=== PATIENT | male | born 1970 | race Caucasian/White ===

== ENCOUNTER 2017-10-18 11:30 | Inpatient (IN) | payer BC ==
--- NOTE | 2017-10-18 11:41 | EDPHY ---
H & P Stated Complaint: Feels "relaxed", heart racing,SOB, since arriving at altitude yesterday Time Seen by Provider: 10/18/17 11:39 HPI/ROS: CHIEF COMPLAINT: Dyspnea HISTORY OF PRESENT ILLNESS: The patient has a history of congestive heart failure and hypertension typically living at sea [place] who presents to the ED with dyspnea in the setting of [place] [address] [place]. The patient is visiting [place] from [place]. The patient reports he has been compliant with his regular medications which include Coreg, Lasix, minoxidil and clonidine. The patient denies significant weight gain. He does report orthopnea, dyspnea on exertion and PND. REVIEW OF SYSTEMS: A comprehensive 10 point review of systems is otherwise negative aside from elements mentioned in the history of present illness. Source: Patient - Personal History Current Tetanus Diphtheria and Acellular Pertussis (TDAP): Yes - Medical/Surgical History Hx Cardiac Disease: Yes Other PMH: morbid obesity. CHF - Social History Smoking Status: Never smoked - Physical Exam Exam: General Appearance: Obese male, no acute distress Eyes: Pupils equal and round no pallor or injection ENT, Mouth: Mucous membranes moist Respiratory: Distant breath sounds secondary to patient's body habitus Cardiovascular: Regular rate and rhythm Gastrointestinal: Abdomen is soft and nontender, no masses, bowel sounds normal Neurological: 5/5 strength all 4 extremities Skin: Warm and dry, no rashes Musculoskeletal: Neck is supple nontender Extremities: symmetrical, full range of motion Constitutional: Initial Vital Signs Temperature (C) 38.1 C 10/18/17 11:31 Heart Rate 85 10/18/17 11:31 Respiratory Rate 18 10/18/17 11:31 Blood Pressure 112/57 L 10/18/17 11:31 O2 Sat (%) 90 L 10/18/17 11:31 O2 Delivery Mode Room Air Allergies/Adverse Reactions: No Known Allergies Allergy (Unverified 10/18/17 11:34) Home Medications: Medication Instructions Recorded Carvedilol [Coreg] 12.5 mg PO BID 10/18/17 Furosemide [Lasix] 40 mg PO BID PRN 10/18/17 Minoxidil [Minoxidil 2.5 mg (*)] 10 mg PO DAILY 10/18/17 clonIDINE [Catapres-Tts (RX)] 0.1 mg TD FR@09 10/18/17 Medical Decision Making - Diagnostics EKG Interpretation: EKG: Complete interpretation has been separately recorded in the [facility] archive. Summary impression: Sinus rhythm, rate 82, bifascicular block. No old EKG to compare to Imaging Results: Imaging Impressions Chest X-Ray 10/18/17 11:57 Impression: Findings suggesting congestive heart failure with cardiomegaly, pulmonary vascular congestion, and mild pulmonary edema. ED Course/Re-evaluation: The patient presents the ED for evaluation of dyspnea precipitated by a acute visit to high altitude yesterday. The patient has a history of heart failure. The patient denies asymmetric calf pain or swelling. The patient denies any history of exertional chest pain. He does endorse symptoms of fatigue and malaise. Workup in the emergency department does demonstrate a low-grade fever of 38.3 degrees. Blood cultures x2 have been obtained. The patient's EKG demonstrates no evidence of acute ischemic changes. He does have a bifascicular block of undetermined etiology. The patient was noted to have an elevated pro-bnp and troponin of 1.35. The patient will require admission to the hospital in the setting of his abnormal laboratory studies, dyspnea, heart failure and fever. Consultation was made with the hospitalist service at 1:00 p.m.. The patient will be admitted by Dr. López. The patient has no obvious source of infection identified as of 1:30 p.m.. Urinalysis is still pending. The patient will be admitted to the progressive care unit for further care. Differential Diagnosis: Differential diagnosis considered includes congestive heart failure, myocardial infarction, pneumonia, urinary tract infection, bacteremia, dehydration, metabolic abnormality Critical Care Time: Critical care time exclusive of procedures and exclusive of the PA's time was 45 minutes, performed by myself, Edmundo Bailey MD. The patient presents to the ED with difficulty breathing, leukocytosis, mild hypoxemia and elevated troponin with renal insufficiency. The patient will require admission to a monitored bed with consultation by Medicine and Cardiology. - Data Points Laboratory Results: Laboratory Results 10/18/17 11:50 10/18/17 11:50 10/18/17 10/18/17 10/18/17 12:25 11:50 11:50 WBC RBC Hgb Hct MCV MCH MCHC RDW Plt Count MPV Neut % (Auto) Lymph % (Auto) [place] % (Auto) Eos % (Auto) Baso % (Auto) Nucleat RBC Rel Count Absolute Neuts (auto) Absolute Lymphs (auto) Absolute Monos (auto) Absolute Eos (auto) Absolute Basos (auto) Absolute Nucleated RBC Immature Gran % Immature Gran # RBC/WBC/PLT Morphology Platelet Estimate PT INR VBG Lactic Acid 2.6 mmol/L H mmol/L (0.7-2.1) Sodium 138 mEq/L mEq/L (135-145) Potassium 3.8 mEq/L mEq/L (3.3-5.0) Chloride 99 mEq/L mEq/L (97-110) Carbon Dioxide 23 mEq/l mEq/l (22-31) Anion Gap 16 mEq/L mEq/L (8-16) BUN 23 mg/dL mg/dL (7-23) Creatinine 1.7 mg/dL H mg/dL (0.7-1.3) Estimated GFR 43 Glucose 119 mg/dL H mg/dL (70-100) Calcium 8.5 mg/dL mg/dL (8.5-10.4) Iron 31.0 mcg/dL L mcg/dL (49.0-199.0) TIBC Pending Iron Saturation Pending Ferritin Pending Total Bilirubin 2.5 mg/dL H mg/dL (0.1-1.4) Conjugated Bilirubin 1.3 mg/dL H mg/dL (0.0-0.5) Unconjugated Bilirubin 1.2 mg/dL H mg/dL (0.0-1.1) AST 44 IU/L IU/L (17-59) ALT 28 IU/L IU/L (21-72) Alkaline Phosphatase 84 IU/L IU/L (38-126) Troponin I Pending 1.350 ng/mL H ng/mL (0.000-0.034) NT-Pro-B Natriuret Pep 11734 pg/mL H pg/mL (0-125) Total Protein 7.1 g/dL g/dL (6.3-8.2) Albumin 3.8 g/dL g/dL (3.5-5.0) 10/18/17 10/18/17 11:50 11:50 WBC 21.63 10^3/uL H 10^3/uL (3.80-9.50) RBC 4.87 10^6/uL 10^6/uL (4.40-6.38) Hgb 12.6 g/dL L g/dL (13.7-17.5) Hct 37.5 % L % (40.0-51.0) MCV 77.0 fL L fL (81.5-99.8) MCH 25.9 pg L pg (27.9-34.1) MCHC 33.6 g/dL g/dL (32.4-36.7) RDW 17.2 % H % (11.5-15.2) Plt Count 187 10^3/uL 10^3/uL (150-400) MPV 10.5 fL fL (8.7-11.7) Neut % (Auto) 93.2 % H % (39.3-74.2) Lymph % (Auto) 3.3 % L % (15.0-45.0) [place] % (Auto) 2.8 % L % (4.5-13.0) Eos % (Auto) 0.0 % L % (0.6-7.6) Baso % (Auto) 0.2 % L % (0.3-1.7) Nucleat RBC Rel Count 0.0 % % (0.0-0.2) Absolute Neuts (auto) 20.16 10^3/uL H 10^3/uL (1.70-6.50) Absolute Lymphs (auto) 0.71 10^3/uL L 10^3/uL (1.00-3.00) Absolute Monos (auto) 0.61 10^3/uL 10^3/uL (0.30-0.80) Absolute Eos (auto) 0.00 10^3/uL L 10^3/uL (0.03-0.40) Absolute Basos (auto) 0.04 10^3/uL 10^3/uL (0.02-0.10) Absolute Nucleated RBC 0.00 10^3/uL 10^3/uL (0-0.01) Immature Gran % 0.5 % % (0.0-1.1) Immature Gran # 0.11 10^3/uL H 10^3/uL (0.00-0.10) RBC/WBC/PLT Morphology TNP Platelet Estimate TNP PT 17.5 SEC H SEC (12.0-15.0) INR 1.42 H (0.83-1.16) VBG Lactic Acid Sodium Potassium Chloride Carbon Dioxide Anion Gap BUN Creatinine Estimated GFR Glucose Calcium Iron TIBC Iron Saturation Ferritin Total Bilirubin Conjugated Bilirubin Unconjugated Bilirubin AST ALT Alkaline Phosphatase Troponin I NT-Pro-B Natriuret Pep Total Protein Albumin Departure - Departure Disposition: [facility] Inpatient Acute Clinical Impression: CHF (congestive heart failure), Elevated troponin Condition: Fair
[2017-10-18 12:02] LABS: PLATELET COUNT 187 10^3/uL (150-400)
[2017-10-18 12:15] LABS: INR 1.42 (0.83-1.16); PROTIME(PATIENT) 17.5 SEC (12.0-15.0)
[2017-10-18] MEDS ORDERED: ONDANSETRON 4 MG/2 ML VIAL IVP PRN (12:49)
[2017-10-18] MEDS ORDERED: ONDANSETRON DISINTEGRATING 4 MG TAB PO PRN (12:49)
--- NOTE | 2017-10-18 13:35 | CPEKG ---
Heart Rate: 82 RR Interval: 732 P-R Interval: 196 QRSD Interval: 120 QT Interval: 448 QTC Interval: 524 P Wells: 54 QRS Wells: -114 T Wave Wells: 84 EKG Severity - ABNORMAL ECG - EKG Impression: SINUS RHYTHM EKG Impression: PROBABLE LEFT ATRIAL ABNORMALITY EKG Impression: INCOMPLETE RBBB AND LAFB Electronically Signed By: Edmundo Bailey 18-Oct-2017 13:37:21
[2017-10-18] MEDS: ACETAMINOPHEN 325 MG TAB PO PRN (14:33)
--- NOTE | 2017-10-18 14:33 | GHP ---
[f rep st] HISTORY AND PHYSICAL DATE OF ADMISSION: 10/18/2017 CHIEF COMPLAINT: Shortness of breath and rigors. HISTORY OF PRESENT ILLNESS: A 47-year-old obese male visiting from [place] who presents to the emergency department with this severe shortness of breath, fatigue and chest pressure. The patient reports flying from [place] the day prior to presentation,picking up a rental car, getting his son, and driving up to [place] at elevation. After arriving at elevation, developing subjective fevers and chills with shakes that he could not control. The patient attempted putting on more clothing without resolution of his symptoms and started developing shortness of breath. Denies any significant cough or sputum production. The shortness of breath and fatigue became so severe that patient opted to drive down from altitude for evaluation. Does endorse tightness of his chest associated with the shortness of breath. Reports pain in his right upper quadrant that was quite severe that he works through. Does report intermittently having pain like this. Cannot clearly associate that right upper quadrant pain with food intake. Denies any nausea. Denies any vomiting. Son reports through the course of the evening that the father was looking diaphoretic and pale. The patient denies any dysuria, hematuria. Denies diarrhea. Denies blood in his stools. Does report markedly increased lower extremity edema since initiating travel. He had his legs wrapped to minimize additional swelling. The patient denies any vision changes, numbness or tingling. Reports a severe fatigue and the desire to simply rest. The patient denies any known history of kidney dysfunction in the past. Reports that he has had normal food and liquid intake. Denies any use of NSAIDs as he develops a rash with them. Did use some CBD oil the evening prior to presentation for uncomfortable legs. PAST MEDICAL HISTORY: 1. Morbid obesity. 2. Hypertension. 3. Hyperlipidemia. 4. Recent diagnosis of congestive heart failure. The patient reports an EF in the 30s. SOCIAL HISTORY: Negative for tobacco. Occasional alcohol. Denies illicit drugs. Reports recent use of CBD oil. FAMILY HISTORY: Very positive for coronary artery disease, multiple male relatives with MIs early in life. ADVANCED DIRECTIVES: Patient is full cor, full tube. His son would be his medical decision maker. REVIEW OF SYSTEMS: A 10-point review of systems is negative with the exception of that reported in the HPI. PHYSICAL EXAMINATION: VITAL SIGNS: Blood pressure 112/57, heart rate 85, respiratory rate 18 saturating 90% on room air. Febrile at 38.1. GENERAL: This is a morbidly obese male lying flat in bed. HEENT: Notable for dry mucous membranes. Eye exam is negative for any icterus. CARDIAC: Heart sounds are very distant but sound regular. PULMONARY: Difficult to auscultate but sound clear. No notable rales or wheezing. GASTROINTESTINAL: Obese. Tenderness to palpation in the right upper quadrant. No rebound or guarding. MUSCULOSKELETAL: 3+ lower extremity edema. SKIN: erythema, cracking and drainage of the lower ext. NEUROLOGIC: Patient is alert and oriented x3. PSYCHIATRIC: He is pleasant and cooperative on interview and examination. DATA: Chest x-ray, which I personally reviewed and interpreted, shows bilateral infiltrates most consistent with vascular congestion. LABORATORY: Troponin 1.35; BNP of 23,300; creatinine 1.7, blood glucose 119, sodium 138, potassium 3.8, lactic acid 2.6. White count 21.6, hematocrit 37.5, MCV is 77, platelet count of 187. ASSESSMENT AND PLAN: This is a 47-year-old male presenting with shortness of breath and fatigue. 1. Acute hypoxic respiratory failure suspect likely related to acute systolic heart failure. The patient has findings on chest x-ray consistent with volume overload and a BNP elevated at 23,000. Will order stat echo and discussed the case with Cardiology as the patient has acute kidney injury as well, which will complicate our use of diuretics. Need better estimation of his cardiac function for plan related to diuresis. I have low suspicion for pulmonary embolism or pneumonia at this time. 2. Sepsis. Patient is presenting with fever, a white count of 21,000. Presumed source would be gastrointestinal based on his right upper quadrant pain. Will order an ultrasound of the gallbladder. Blood cultures have been obtained in the emergency department. Can empirically start an antibiotic to cover gram-negative pathogens until we collect more data. I have ordered a urinalysis as well. 3. Indeterminate troponin. Patient has a concurrent acute kidney injury; however, also has chest pain symptoms and based on his risk factors would be high risk for ischemic disease. Ordering a stat EKG and asking Cardiology to weigh in. Will rapid cycle his troponin for better plan related to risk stratification. Additionally, should get a good view of any segmental wall motion abnormalities on echo. We will give aspirin now and actively follow patient's clinical course. 4. Acute kidney injury. Based on patient's reported history, he has no chronic kidney disease. Certainly a concerning finding in the setting of presumed acute heart failure. We will discuss with Cardiology how to best approach patient's diuresis in the setting of an elevated creatinine. Will send urine studies to work up possible chronic kidney disease not known by the patient. 5. Hyperglycemia. Suspect the patient likely has borderline diabetes, if not flagrant diabetes. Will send hemoglobin A1c. Cover with sliding scale insulin as appropriate. 6. Microcytic anemia. We will send iron studies. 7. Leukocytosis. The patient is presenting with a white count of 21,000, baseline unknown. Most obvious source of infection would be abdominal related to his right upper quadrant pain associated with his rigors. Will check an ultrasound of the abdomen and urinalysis and likely begin empiric treatment for cholecystitis if findings are consistent. 8. Prophylaxis with heparin subcu in the setting of acute kidney injury. DIET: N.p.o. until more data is available for diagnostic plan. DISPOSITION: I expect greater than 2 midnights. The patient is presenting with multi organ dysfunction requiring extensive diagnostic workup and treatment plan. I discussed the case with Dr. Bailey from the emergency department. Will admit the patient to the PCU for care. /[id number]/MODL MTDD
[2017-10-18] MEDS ORDERED: NS 1,000 ML IV ONE ×3 (14:53→16:42)
[2017-10-18] MEDS ORDERED: ALTEPLASE 2 MG VIAL IVP PRN (14:55)
--- NOTE | 2017-10-18 14:59 | ECHO ---
[email or web address] [address] [address] Main: [phone] Fax: [email or web address] Echocardiogram Name: ROSETTE TRIMBLE MR#: [id number] Study Date: 10/18/2017 Study Time: 01:20 PM Date of : 1970 Age: 47 year(s) Height: 190.5 cm (75 in.) Weight: 238.14 kg (525 lb.) BSA: 3.31 m2 Gender: Male Examination: Echo Indication: new heart failure/positive troponin Image Quality: Technically Difficult Contrast: Requested by: Nhung López BP: / Heart Rate: Rhythm: Indication: new heart failure/positive troponin Procedure Staff Broke Worker: Celestina Delgado RDCS Reading Physician: Anibal Roberson MD Requesting Provider: Conclusions: Normal size left ventricle. Mild to moderate LVH. The ejection fraction is estimated to be 55-60 %. LV septal wall appears flattened due to R sided volume overload.. Moderately to severely reduced right ventricular function. The left atrium is moderately to severely dilated. Mild mitral annular calcification. Trivial tricuspid valve regurgitation. The pulmonary artery pressure is normal. Unable to accurately assess accurate chamber sizes due to pt's morbid obesity.. Measurements: Chambers Valvular Assessment AV/MV Valvular Assessment TV/PV Normal Normal Normal Name Value Range Name Value Range Name Value Range Ao Shweta (MM): 3.5 cm (2.2 cm-3.7 AV Vmax: 1.91 m/s (1 m/s-1.7 TR Vmax: 2.17 mm/s ( - ) cm) m/s) TR PGmax: 19 mmHg ( - ) IVSd (2D): 1.7 cm (0.6 cm-1.1 AV maxP mmHg ( - ) syst. PAP: 29 mmHg ( - ) cm) AV meanP mmHg ( - ) LVDd (2D): 5.5 cm (4.2 cm-5.9 MV E Vmax: 0.59 m/s ( - ) cm) MV A Vmax: 0.42 m/s ( - ) LVDs (2D): 3.5 cm (2.1 cm-4 MV E/A: 1.40 ( - ) cm) LVPWd (2D): 1.4 cm (0.6 cm-1 cm) LVEF (2D): 66 (>=54 %) EF Range: 55-60 % Continued Measurements: Chambers Valvular Assessment AV/MV Valvular Assessment TV/PV Patient: ROSETTE TRIMBLE Study Date: 10/18/2017 Page 1 of 2 01:20 PM Name Value Name Value Name Value LADs: 6.2 cm MV E/E' Septal: 10.10 CVP (est.): 10 mmHg Additional Vessels Name Value Inferior Vena Cava: 3.4 cm Findings: Left Ventricle: Normal size left ventricle. Mild to moderate LVH. The ejection fraction is estimated to be 55-60 %. LV septal wall appears flattened due to R sided volume overload.. Right Ventricle: Moderately to severely reduced right ventricular function. Left Atrium: The left atrium is moderately to severely dilated. Mitral Valve: Mild mitral annular calcification. Aortic Valve: AV opens well.. Tricuspid Valve: Trivial tricuspid valve regurgitation. The pulmonary artery pressure is normal. Pulmonic Valve: The pulmonic valve is normal in appearance and function. Pericardium: Trivial pericardial effusion. Exam Comments: Unable to accurately assess accurate chamber sizes due to pt's morbid obesity.. (No Signature Object) Patient: ROSETTE TRIMBLE Study Date: 10/18/2017 Page 2 of 2 01:20 PM [id number]
--- NOTE | 2017-10-18 15:43 | PDMN ---
Medical Necessity Medical necessity: C/M review: patient meets INPT criteria under MCG 190 Heart Failure, M-160 Sepsis and Other Febrile Illness, without Focal Infection: Acute hypoxic respiratory failure suspect likely related to acute systolic heart failure, sepsis, indeterminate troponin, acute kidney injury, hyperglycemia, leukocytosis, WBC 21.63, INR 1.42, VBG 2.6, Cr 1.7, glucose 119, Iron 31.0, iron saturation 9, total bilirubin 2.5, conjugated bilirubin 1.3, unconjugated bilirubin 1.2, troponins 1.350, BNP 95269, severe shortness of breath, fatigue, rigors, chest pressure, RUQ pain, 38.5 T max, CXR shows bilateral infiltrates most consistent with vascular congestion and volume overload, requiring stat echocardiogram, abdominal US, Cardiology consult, IV Ceftriaxone daily, cardiac monitoring, pulse oximetry, supplemental O2, in SDU, comorbid history patient flew via airplane from [place] to [place] 10/17/2017 , picked up a rental car, drove up to [place], [place] at [place],000 feet elevation , shortness of breath and fatigue so severe patient drove down from high altitude for evaluation, comorbid history of morbid obesity, hypertension, hyperlipidemia, recent diagnosis of CHF, patient reports EF in the 30's. anticipates > 2 MN LOS for ongoing med nec for eval and TX of above.
[2017-10-18] MEDS ORDERED: VANCOMYCIN 1.25 GM in NS 250 ML IV ONE (17:00)
[2017-10-18] MEDS ORDERED: ALBUTEROL 3 ML DEYVIAL IH PRN (17:07)
[2017-10-18] MEDS ORDERED: LIDOCAINE 1% 300 MG/30 ML SDV ONE (17:11)
--- NOTE | 2017-10-18 17:29 | GCON ---
[f rep st] CONSULTATION PULMONARY/CRITICAL CARE CONSULTATION DATE OF CONSULTATION: 10/18/2017 REFERRING PHYSICIAN: Nhung López MD REASON FOR REFERRAL: Evaluation and management of dyspnea, hypoxemia, congestive heart failure, and possible sepsis. HISTORY OF PRESENT ILLNESS: The patient is a 47-year-old male from [place], who flew here yesterda y, then drove immediately to [facility]. Upon arriving , he developed some fevers and chil ls/shakes followed by shortness of breath. He denies any cough or fever. He also had some chest tig htness associated with the shortness of breath. He drove down and presented to the emergency departm ent. He also has some right upper quadrant discomfort that is not associated with food intake. He d enies any nausea or vomiting. Since presenting to the emergency department and being placed on oxyge n, he reports that his breathing feels better, and he denies any chest pain/tightness currently. PAST MEDICAL HISTORY: 1. Morbid obesity. He states that he is being evaluated by an field agronomist for a "low dopamine l evel.". 2. Lymphedema. The patient has severe lymphedema and has been followed in a wound/lymphedema clinic . He wraps his legs regularly. He reports that he had surgery several years ago on his right calf, and he has some chronic discolored drainage from that. 3. Asthma. The patient reports a longstanding history of asthma for which he uses an Asmanex inhale r (not on the reconciled medications). He uses this just p.r.n., particularly during allergy season, which is now. 4. Obstructive sleep apnea. This was previously diagnosed, and the patient uses CPAP without oxygen at home. 5. Congestive heart failure. The patient was apparently recently diagnosed with congestive heart fa ilethel, but was treated with furosemide and antihypertensives, and he saw his doctor just before tommie lam here and was given a "clean bill of health.". MEDICATIONS: At the time of admission include furosemide, minoxidil, clonidine, carvedilol, and Asma nex. ALLERGIES: None. SOCIAL HISTORY: The patient lives in [place]. He denies tobacco use. He drinks alcohol occasiona lly. FAMILY HISTORY: Positive for coronary artery disease. REVIEW OF SYSTEMS: 10-point review of systems adds nothing to the History of Present Illness. PHYSICAL EXAMINATION: GENERAL: The patient is awake and alert. Blood pressure has been as low as 9 6/58, but is currently 126/49 after 1 L of IV fluids. Pulse of 79. He is afebrile. Oxygen saturati ons are 93% on 2 L. His temperature was 38.5 in the emergency department. His respiratory rate has been 16 to 27. The patient's weight is 230 kg (523 pounds) with a BMI of 65.6. HEENT: Normocephali c and atraumatic. No icterus. NECK: No JVD. Trachea is midline. CHEST: Clear to auscultation. CARDIAC: Regular rate and rhythm without murmur. ABDOMEN: Soft, nontender. Bowel sounds are prese nt. He is morbidly obese. EXTREMITIES: No clubbing. He has very severe chronic stasis changes wit h pachydermal changes of the skin below the knees, and lymphedema. On his right posterior calf, ther e are some fissures and cracks in the skin, with some purulent drainage on the dressing around it, bu t no further purulence could be expressed. He is not particularly tender there. The drainage is fou l smelling. He has some mild diffuse patchy erythema on the right anterior and posterior thigh that is not seen on the left. There is no definite lymphangitic streaking. NEURO: The patient is awake and alert. He has no gross motor or sensory deficits. LABORATORY: Chemistry group is remarkable for creatinine of 1.7. Iron studies show a low iron satur ation and iron level, with a normal ferritin. Troponin is 1.3. BNP is 23,300. The procalcitonin is markedly elevated at 15.3. A D-dimer is 0.87. An INR is 1.4. Lactate is 2.1, down from 2.6 at adm ission. White blood count is 21.6 with a hemoglobin of 12.6. Platelet count is 187. DIAGNOSTIC DATA: A chest x-ray shows cardiomegaly with some vascular congestion suggestive of conges tive heart failure; images reviewed by me. An echocardiogram shows an ejection fraction of 55% to 60 % with some septal flattening suggesting right ventricular volume overload. His pulmonary artery pre ssure is estimated to be normal. An ultrasound did not show any evidence of cholelithiasis, but is l imited by the patient's body habitus. An electrocardiogram shows a sinus rhythm with bifascicular bl ock. ASSESSMENT: 1. Sepsis. The patient presented with a fever, and elevated white blood count, and transient hypote nsion. His lactate is mildly elevated. He started to respond to fluids with improved blood pressure and reduction in lactate, although he has only had 1 L of fluids. I think the most likely source wo uld be skin, with the gallbladder possible, but less likely. The patient has been empirically starte d on ceftriaxone. 2. Congestive heart failure. This is suggested by the patient's elevated BNP, as well as his histor y of congestive heart failure, treated with Lasix. However, his ejection fraction is only mildly red uced, and his echocardiogram shows primarily right ventricular volume overload. He also has an eleva tank troponin that suggests a component of myocardial ischemia, but this is likely due to demand rathe r than acute coronary syndrome. There are no discrete regional wall motion abnormalities on the echo cardiogram to suggest an ischemic area. 3. Elevated creatinine. This is likely acute kidney injury related to sepsis and perhaps low cardia c output/prerenal state. There could be a chronic component, but the patient is unaware of any histo ry of renal disease. 4. Obstructive sleep apnea. This is chronic and the patient is usually treated with CPAP at home. His son is apparently bring his CPAP unit here to the hospital. 5. Asthma. The patient has a chronic history of asthma, but does not feel that his is currently act keri. He is usually treated with Asmanex p.r.n. RECOMMENDATIONS: 1. I will give the patient another 2 L of IV fluids, then may check him back on monitor to see if he was still fluid responsive. Although we need to be somewhat cautious regarding his fluids, I think the more concerning risk is of undertreating his sepsis. 2. Will give him an additional dose of ceftriaxone for a total of 2 g. Will also have Pharmacy dose vancomycin to cover for cellulitis as a possible cause of his sepsis. 3. Consider infectious disease consultation. 4. Will start vitamin C per protocol for sepsis. 5. Will use albuterol p.r.n. patient's asthma. 6. Initiate CPAP. 7. Continue to monitor troponins, which have gone down slightly compared to his initial presentation . /[id number]/MODL
[2017-10-18] MEDS: THIAMINE HCL 200 MG in NS 100 ML IV SCH (17:38)
--- NOTE | 2017-10-18 18:18 | PDCARCONS ---
Cardiology Consult Reason for Consult: Dyspnea and with signs and symptoms of congestive heart failure Chief Complaint: Shortness of breath Requesting Physician: ER/Hospitalist Team History of Present Illness: Patient is a 47 y/o male with history of morbid obesity (BMI was >65 kg/m^2), HTN, chronic lower extremity lymphedema (followed by a wound team in [place]) , and pre DM, who presented to [facility] ER with complaints of dyspnea and feeling poorly. Patient arrived from [place] yesterday by flight, then drove up to [place] (where an airBNB had been rented). While up in [place], the patient began to have more significant dyspnea. Associated with the dyspnea was also rigors and subjective fevers. The patient was unable to get warm. Chest tightness was also noted as well as some discomfort related to the right upper quadrant. When the patient was seen in on the floor, after about one liter of fluid, he reported feeling better in general. There was ongoing right lower extremity pain and erythema noted - strongly suggestive of cellulitis. Furthermore, the patient reported that issues with cellulitis in the past involved the same location on the same foot/leg. Blood pressure in the ER were more hypotensive, but IV fluid bolus assisted with increase to blood pressures. IV antibiotics were started after two blood cultures were obtained. Echocardiogram was also performed which revealed grossly normal left ventricular systolic ejection fraction, evidence of diastolic dysfunction, and no clear valve pathology. Creatinine was noted to be elevated (1.7) and mild elevation in troponin was also noted. No dynamic ST/ T wave changes were noted to the ECG. History Information - Allergies/Home Medication List Allergies/Adverse Reactions: No Known Allergies Allergy (Unverified 10/18/17 11:34) Home Medications: Carvedilol [Coreg] 12.5 mg PO BID 10/18/17 [Last Taken 10/18/17] Furosemide [Lasix] 40 mg PO BID PRN 10/18/17 [Last Taken Unknown] Minoxidil [Minoxidil 2.5 mg (*)] 10 mg PO DAILY 10/18/17 [Last Taken 10/18/17] clonIDINE [Catapres-Tts (RX)] 0.1 mg TD FR@09 10/18/17 [Last Taken 10/16/17] I have personally reviewed and updated: family history, medical history, social history, surgical history Past Medical History: - Past Medical History hypertension, hyperlipidemia Additional medical history: moderate obesity - Surgical History Reports: no pertinent surgical hx - Family History Positive for: non-pertinent - Social History Smoking Status: Never smoked Alcohol Use: None Drug Use: Other (patient used tincture while in [place]) Cardiac History - Cardiac History Cardiac Risk Factors: hypertension (>140/90), male Timing/Duration: Hours Severity: moderate Severity Scale: 5 Location: substernal, central Activities at Onset: activity Modifying Factors: improves with: oxygen, rest Associated Symptoms: malaise, shortness of breath, weakness ADILSON Risk Evaluation age greater or equal to 65: no greater or equal to 3 CAD risk factors: yes known CAD(stenosis greater or eqaul to 50%): no ASA use in past 7 days: no severe angina(greater or equal to 2 episodes in 24hrs): no EKG ST changes greater or equal to 0.5mm: no positive cardiac marker: yes Total Score: 2 ADILSON Score: 8.3% risk Physical Exam Physical Exam: Temp Pulse Resp BP Pulse Ox 37.7 C 79 27 H 126/49 H 93 10/18/17 16:00 10/18/17 16:00 10/18/17 16:00 10/18/17 16:00 10/18/17 16:00 O2 (L/minute) 2 Constitutional: appears nourished, not in pain, obese Eyes: PERRL, EOMI Ears, Nose, Mouth, Throat: moist mucous membranes Cardiovascular: regular rate and rhythym, no murmur, rub, or gallop, edema, No JVD Peripheral Pulses: 1+: dorsalis-pedis (R), dorsalis-pedis (L) Respiratory: no respiratory distress, reduced air movement Gastrointestinal: normoactive bowel sounds (severe obesity) Skin: warm, erythema, fluctuance, rash Musculoskeletal: full muscle strength Neurologic: sensation intact bilaterally, CN II-XII Intact Psychiatric: interacting appropriately, not anxious, not encephalopathic Lab and Imaging 10/18/17 11:50 10/18/17 11:50 WBC 21.63 10^3/uL (3.80-9.50) H 10/18/17 11:50 RBC 4.87 10^6/uL (4.40-6.38) 10/18/17 11:50 Hgb 12.6 g/dL (13.7-17.5) L 10/18/17 11:50 Hct 37.5 % (40.0-51.0) L 10/18/17 11:50 MCV 77.0 fL (81.5-99.8) L 10/18/17 11:50 MCH 25.9 pg (27.9-34.1) L 10/18/17 11:50 MCHC 33.6 g/dL (32.4-36.7) 10/18/17 11:50 RDW 17.2 % (11.5-15.2) H 10/18/17 11:50 Plt Count 187 10^3/uL (150-400) 10/18/17 11:50 MPV 10.5 fL (8.7-11.7) 10/18/17 11:50 Neut % (Auto) 93.2 % (39.3-74.2) H 10/18/17 11:50 Lymph % (Auto) 3.3 % (15.0-45.0) L 10/18/17 11:50 Izard % (Auto) 2.8 % (4.5-13.0) L 10/18/17 11:50 Eos % (Auto) 0.0 % (0.6-7.6) L 10/18/17 11:50 Baso % (Auto) 0.2 % (0.3-1.7) L 10/18/17 11:50 Nucleat RBC Rel Count 0.0 % (0.0-0.2) 10/18/17 11:50 Absolute Neuts (auto) 20.16 10^3/uL (1.70-6.50) H 10/18/17 11:50 Absolute Lymphs (auto) 0.71 10^3/uL (1.00-3.00) L 10/18/17 11:50 Absolute Monos (auto) 0.61 10^3/uL (0.30-0.80) 10/18/17 11:50 Absolute Eos (auto) 0.00 10^3/uL (0.03-0.40) L 10/18/17 11:50 Absolute Basos (auto) 0.04 10^3/uL (0.02-0.10) 10/18/17 11:50 Absolute Nucleated RBC 0.00 10^3/uL (0-0.01) 10/18/17 11:50 Immature Gran % 0.5 % (0.0-1.1) 10/18/17 11:50 Immature Gran # 0.11 10^3/uL (0.00-0.10) H 10/18/17 11:50 RBC/WBC/PLT Morphology TNP 10/18/17 11:50 Platelet Estimate TNP 10/18/17 11:50 PT 17.5 SEC (12.0-15.0) H 10/18/17 11:50 INR 1.42 (0.83-1.16) H 10/18/17 11:50 D-Dimer 0.87 ug/mLFEU (0.00-0.50) H 10/18/17 15:36 VBG Lactic Acid 2.1 mmol/L (0.7-2.1) 10/18/17 14:40 Sodium 138 mEq/L (135-145) 10/18/17 11:50 Potassium 3.8 mEq/L (3.3-5.0) 10/18/17 11:50 Chloride 99 mEq/L (97-110) 10/18/17 11:50 Carbon Dioxide 23 mEq/l (22-31) 10/18/17 11:50 Anion Gap 16 mEq/L (8-16) 10/18/17 11:50 BUN 23 mg/dL (7-23) 10/18/17 11:50 Creatinine 1.7 mg/dL (0.7-1.3) H 10/18/17 11:50 Estimated GFR 43 10/18/17 11:50 Glucose 119 mg/dL (70-100) H 10/18/17 11:50 Calcium 8.5 mg/dL (8.5-10.4) 10/18/17 11:50 Iron 31.0 mcg/dL (49.0-199.0) L 10/18/17 11:50 TIBC 338 ug/dL (260-490) 10/18/17 11:50 Iron Saturation 9 % (20-55) L 10/18/17 11:50 Ferritin 101.0 ng/mL (17.9-464.0) 10/18/17 11:50 Total Bilirubin 2.5 mg/dL (0.1-1.4) H 10/18/17 11:50 Conjugated Bilirubin 1.3 mg/dL (0.0-0.5) H 10/18/17 11:50 Unconjugated Bilirubin 1.2 mg/dL (0.0-1.1) H 10/18/17 11:50 AST 44 IU/L (17-59) 10/18/17 11:50 ALT 28 IU/L (21-72) 10/18/17 11:50 Alkaline Phosphatase 84 IU/L (38-126) 10/18/17 11:50 Troponin I 1.310 ng/mL (0.000-0.034) H 10/18/17 11:50 NT-Pro-B Natriuret Pep 15502 pg/mL (0-125) H 10/18/17 11:50 Total Protein 7.1 g/dL (6.3-8.2) 10/18/17 11:50 Albumin 3.8 g/dL (3.5-5.0) 10/18/17 11:50 Procalcitonin 15.35 ng/mL (0.02-0.10) H 10/18/17 15:42 Urine Color NOELLE 10/18/17 15:20 Urine Appearance MODERATELY TURBID 10/18/17 15:20 Urine pH 5.0 (5.0-7.5) 10/18/17 15:20 Ur Specific [place] 1.022 (1.002-1.030) 10/18/17 15:20 Urine Protein 3+ (NEGATIVE) H 10/18/17 15:20 Urine Ketones NEGATIVE (NEGATIVE) 10/18/17 15:20 Urine Blood 2+ (NEGATIVE) H 10/18/17 15:20 Urine Nitrate NEGATIVE (NEGATIVE) 10/18/17 15:20 Urine Bilirubin NEGATIVE (NEGATIVE) 10/18/17 15:20 Urine Urobilinogen 4.0 EU (0.2-1.0) H 10/18/17 15:20 Ur Leukocyte Esterase NEGATIVE (NEGATIVE) 10/18/17 15:20 Urine RBC 15-25 /hpf (0-3) H 10/18/17 15:20 Urine WBC 5-10 /hpf (0-3) H 10/18/17 15:20 Ur Epithelial Cells TRACE /lpf (NONE-1+) 10/18/17 15:20 Urine Bacteria TRACE /hpf (NONE SEEN) H 10/18/17 15:20 Hyaline Casts 5-15 /lpf (0-1) 10/18/17 15:20 Urine Mucus 3+ /lpf (NONE-1+) H 10/18/17 15:20 Urine Glucose NEGATIVE (NEGATIVE) 10/18/17 15:20 Urine Opiates Screen NEGATIVE ng/mL (NEGATIVE) 10/18/17 15:20 Urine Barbiturates NEGATIVE ng/mL (NEGATIVE) 10/18/17 15:20 Ur Phencyclidine Scrn NEGATIVE ng/mL (NEGATIVE) 10/18/17 15:20 Ur Amphetamines Screen NEGATIVE ng/mL (NEGATIVE) 10/18/17 15:20 U Benzodiazepines Scrn NEGATIVE ng/mL (NEGATIVE) 10/18/17 15:20 Urine Cocaine Screen NEGATIVE ng/mL (NEGATIVE) 10/18/17 15:20 U Marijuana (THC) Screen 280 ng/mL (NEGATIVE) 10/18/17 15:20 Visualized and Interpreted Chest x-ray results: Yes Chest X-ray Interpretation: other (cardiomegaly noted, but likely secondary to patients body habitus) Visualized and Interpreted EKG results: Yes EKG Interpretation: Positive for: normal sinsus rhythm Telemetry: sinus rhythm Echocardiogram: normal LVEF (poor image quality secondary to patients body habitus) A/P Assessment: Patient is a 47 y/o male with history of morbid obesity, HTN, HLP, and MARYANN with CPAP use, who presents to [facility] ER after acute complaints of chest tightness noted in association with dyspnea while at elevation (patient traveled from [place] yesterday). Recent consultation with cardiology back at home with diagnosis of congestive heart failure rendered. In the ER today, acute renal insufficiency noted, mild elevation to troponin noted in the setting of possible sepsis (WBC elevated, fevers reported, rigors noted) with cellulitis as etiology. Hypotension was corrected with fluids in the ER. Patient reports that he is feeling better at the time of cardiology consultation. Plan: (1) Blood cultures are pending (2) IV antibiotics have been started (3) IV hydration to continue (4) Serial cardiac biomarkers and ECG (5) Reassessment of BMP (renal function in particular) (6) At present, invasive left heart cath is not indicated (7) Would resume CPAP with MARYANN history (8) CHF diagnosis like diastolic in nature (9) Continue therapy on Coreg, minoxidil and clonidine as at present (somewhat unusual to have two alpha blockers), but would maintain therapy given the use of the clonidine (and desire to avoid rebound hypertension) (10) Would have wound team assessment of legs (lymphedema/cellulitis) (11) Ambulation, as tolerated, should be continued. Cardiology will follow this patient over course of stay.
[2017-10-18] MEDS: ASPIRIN EC 325 MG TAB PO SCH (18:23)
[2017-10-18] MEDS: ASCORBIC ACID 1,500 MG in D5W 100 ML IV SCH ×2 (22:00→23:47)
[2017-10-19] MEDS: ASCORBIC ACID 1,500 MG in D5W 100 ML IV SCH ×2 (04:00→10:17)
[2017-10-19 05:13] LABS: PLATELET COUNT 150 10^3/uL (150-400)
[2017-10-19] MEDS: THIAMINE HCL 200 MG in NS 100 ML IV SCH (05:40)
[2017-10-19] MEDS ORDERED: ENOXAPARIN 40 MG/0.4 ML SYR SC SCH (09:00)
--- NOTE | 2017-10-19 09:11 | SOAPPROG ---
SOAP Progress Note Assessment/Plan: Assessment: 1. Hypertension 2. Hyperlipidemia 3. Diastolic heart failure with elevated BNP and mildly elevated troponin. 4. On going evaluation for sepsis. 5. Renal insufficiency query acute on chronic 6. Anemia associated with low ferritin/iron 7. Morbid obesity 8. Sleep apnea 10/19/17 09:08 Impression: Stable hemodynamics overnight with normal heart rate blood pressure. Patient is awake laying flat on BiPAP. He has no chest pain or shortness of breath. There is no evolution of his ECG. Troponins are stable/ mildly elevated without upward trend. Echo does not reveal regional wall motion abnormalities. There is preserved LV systolic function. Tissue Doppler does not suggest elevated end-diastolic pressures. No source of infection as yet identified. Recommendations: Continue supportive care with antibiotics per Medicine Service. Hold antihypertensives. No further cardiac evaluation at this point. Further evaluation pending clinical course. Aspirin to be continued. Statin therapy prior to discharge. Resume beta-krista prior to discharge. Subjective: 1st visit with this 47-year-old male admitted yesterday. Overnight he has done well without chest pain. He has minimal shortness of breath. He is lying flat. He denies PND orthopnea. He has chronic lower extremity swelling and is in the Wound Clinic. Other cardiac risk includes prediabetes as well as morbid obesity. Objective: Medications Generic Name Dose Route Start Last Admin Trade Name Freq PRN Reason Stop Dose Admin Aspirin Buffered 325 mg 10/18/17 13:45 10/18/17 18:23 Aspirin Ec PO 04/16/18 13:44 325 mg DAILY PASCUAL Enoxaparin Sodium 60 mg 10/19/17 09:00 Lovenox SC 04/17/18 08:59 BID [facility] Vital Signs Temp Pulse Resp BP Pulse Ox 36.8 C 80 25 H 129/72 H 96 10/19/17 04:00 10/19/17 04:00 10/19/17 04:00 10/19/17 04:00 10/19/17 04:00 Laboratory Results 10/19/17 04:57 10/19/17 04:57 10/18/17 10/19/17 10/20/17 05:59 05:59 05:59 Intake Total 6335 Output Total 650 Balance 5685 PT 17.5 SEC (12.0-15.0) H 10/18/17 11:50 INR 1.42 (0.83-1.16) H 10/18/17 11:50 Laboratory Tests 10/18/17 10/18/17 11:50 11:50 Iron 31.0 L Iron Saturation 9 L Troponin I 1.350 H 1.310 H NT-Pro-B Natriuret Pep 13257 H Physical Exam - Physical Exam General Appearance: alert, mild distress EENT: No scleral icterus (R), No scleral icterus (L) Neck: non-tender Respiratory: rhonchi Cardiac/Chest: regular rate, rhythm Abdomen: normal bowel sounds, soft Skin: No mottled, No pallor Neuro/Psych: no motor/sensory deficits, alert, normal mood/affect, oriented x 3 ICD10 Worksheet Patient Problems: Problems Problem Status Onset CHF (congestive heart failure) Acute Elevated troponin Acute Review of Systems - Review of Systems Constitutional: denies: chills, fever EENTM: no symptoms reported Respiratory: no symptoms reported Cardiac: no symptoms reported Gastrointestinal/Abdominal: constipation. denies: diarrhea, nausea, vomiting Genitourinary: no symptoms Musculoskelatal: no symptoms Skin: no symptoms Neurological: no symptoms Hematologic/Lymphatic: no symptoms reported Immunologic/allergic: no symptoms reported All Other Systems: Reviewed and Negative Past Medical History - Personal History Current Tetanus Diphtheria and Acellular Pertussis (TDAP): Yes - Medical/Surgical History Hx Asthma: No Hx Chronic Respiratory Disease: No Hx Cardiac Disease: Yes Hx Diabetes: No Hx Renal Disease: No Hx Alcoholism: No Hx Cirrhosis: No Hx HIV/AIDS: No Hx Splenectomy or Spleen Trauma: No Other PMH: morbid obesity. CHF,HTN,High cholesterol,lymphedema lower legs - Social History Smoking Status: Never smoked
[2017-10-19] MEDS: ENOXAPARIN 60 MG/0.6 ML SYR SC SCH ×2 (09:15→20:19)
[2017-10-19] MEDS: ASPIRIN EC 325 MG TAB PO SCH (09:15)
[2017-10-19] MEDS: cefTRIAXone 2 GM in STERILE WATER INJ 20 ML IV SCH ×2 (09:15→09:33)
[2017-10-19] MEDS: ceFAZolin 2 GM/SWFI 2 GM/20 ML SYR IVP SCH ×2 (10:17→17:10)
--- NOTE | 2017-10-19 10:17 | GCON ---
[f rep st] CONSULTATION INFECTIOUS DISEASE CONSULTATION DATE OF CONSULTATION: 10/19/[address] Jose Lopez. REASON FOR CONSULTATION: Sepsis. HISTORY OF PRESENT ILLNESS: The patient is a 47-year-old male with a past medical history of morbid obesity and congestive heart failure, who is visiting from [place], who I am now asked to see in co nsultation for sepsis. The patient flew from [place] to [place] and then obtained a rental car and drove [place] to [place]. [place] he arrived [place] higher altitude, he developed significant shaking chills. These lasted all night. This was associated with some right lower extremity tender ness. He also had shortness of breath, cough, and difficulty breathing. Based on those findings, he returned to lower altitude for further evaluation. He was having some right upper quadrant pain as well, which he associates associated with constipation. He has not had nausea or vomiting. No urina ry tract symptoms. The patient describes having sepsis 3 years ago associated with necrotizing fasci itis of the right lower extremity requiring surgical debridement and subsequent long-term followup fo r wound healing. He has chronic bilateral lower extremity lymphedema. Evaluation here revealed a wh ite blood cell count of 21,000 with significant left shift. He also had a temperature of 38.5. Crea tinine was elevated at 1.6 and patient does not know what his baseline value is. Serum lactate and p rocalcitonin were also elevated. Blood cultures x2 were obtained. Ultrasound of the abdomen was per formed, which did not show evidence of cholecystitis. Bilateral lower extremity ultrasound did not s how evidence of DVT. The patient was started on ceftriaxone and subsequently given a dose of vancomy alka empirically. The patient does not note any other travel or contact with animals. No prior histo ry of MRSA. Given the above findings, I am now asked to assist in his ongoing management. PAST MEDICAL HISTORY: Morbid obesity, obstructive sleep apnea, congestive heart failure, hypertensio n, history of sepsis related to necrotizing fasciitis of the right lower extremity. PAST SURGICAL HISTORY: Debridement of right lower extremity for necrotizing fasciitis. CURRENT MEDICATIONS: Status post vancomycin 1 g IV x1, ceftriaxone 2 g IV daily, albuterol nebs, vit elizabeth C 1500 mg IV q.6 hours, aspirin 325 mg p.o. daily, Lovenox 60 mg b.i.d., thiamin 200 mg IV q.12 hours. ALLERGIES: Ibuprofen associated with hives. SOCIAL HISTORY: Patient does not smoke or drink alcohol. He describes using a marijuana-based tinct ure prior to admission. No pets at home. FAMILY HISTORY: Father with multiple endocrine neoplasia. REVIEW OF SYSTEMS: Outside that noted in the HPI, the remainder of 10-system review is unremarkable. PHYSICAL EXAMINATION: VITAL SIGNS: Temperature maximum 38.5, temperature current 36.8, heart rate 8 0, respiratory rate 25, blood pressure 129/72, oxygen saturation 96% on 3 L. GENERAL: Patient is mo rbidly obese with mild respiratory distress. He appears nontoxic. HEENT: There is no scleral icter us, conjunctival injection, or conjunctival petechiae. There is no tenderness over the sinuses. The re is no nasal discharge. Oropharynx shows moist mucous membranes with no evidence of thrush. Denti tion is in fair repair. NECK: Supple without palpable lymphadenopathy or thyromegaly. CHEST: Ther e are bilateral expiratory wheezes. Respiratory effort is mildly increased. CARDIOVASCULAR: Regula r rate and rhythm without murmurs, gallops, or rubs. Varicose veins are present. ABDOMEN: Obese, n ontender, nondistended. Assessment for organomegaly is limited by body habitus. Bowel sounds are pr esent. MUSCULOSKELETAL: There is bilateral lower extremity lymphedema with venous insufficiency atul nge. The right lower extremity shows erythema in the medial thigh extending over the area of venous stasis toward the ankle. This does not extend onto the dorsal aspect of the foot. There is no pain with range of motion of the ankle joint. SKIN: See musculoskeletal. There are no stigmata of endoc arditis. The skin is warm and dry to touch. NEUROLOGIC: The patient is alert and interacts appropr iately with the examiner. Cranial nerves 2-12 are grossly intact. Sensation is grossly intact. LYM PHATICS: No cervical or supraclavicular nodes. LABORATORY DATA: White blood cell count 16.9, hematocrit 35.9, platelets 150, neutrophils 91%. Seru m creatinine is 1.6. Venous lactate is 2.1. Urinalysis shows 5-10 white blood cells and 15-25 red b lood cells. Urine drug screen shows positivity for marijuana. Blood cultures x2 are pending. Abdom inal ultrasound shows no evidence of gallstones, gallbladder wall thickening or biliary dilatation; u ltrasound of the lower extremities is negative for DVT; both studies limited by body habitus. Echoca rdiogram shows EF of 55% to 60% with moderate LVH; [id number] left atrial dilatation is prese nt; [id number] reduction in right ventricular function. Chest x-ray shows evidence of cardio megaly without focal infiltrate. IMPRESSION: Sepsis, likely due to right lower extremity cellulitis with chronic venous insufficiency : Most likely, this will be due to beta-hemolytic streptococci based on appearance and clinical cour se. No prior history of MRSA or evidence of purulent to suggest MRSA skin and soft tissue infection. He has no open ulcerations that would predispose to gram-negative darrin or anaerobic yousuf. Paramete rs of sepsis are improving with sepsis therapy and antibiotic therapy. RECOMMENDATIONS: 1. Ancef 2 g IV q.8 hours. 2. Discontinue ceftriaxone. 3. Elevate right lower extremity. 4. Continue treatment of sepsis in intensive care unit. 5. Follow up blood cultures as available, given potential for concomitant bacteremia in the setting of rigors. 6. Follow clinical course to above measures. Thank you for this consultation. We will continue to follow the patient with you. /[id number]/MODL
--- NOTE | 2017-10-19 11:11 | CPEKG ---
Heart Rate: 90 RR Interval: 667 P-R Interval: 192 QRSD Interval: 110 QT Interval: 388 QTC Interval: 475 P [place]: 68 QRS [place]: 225 T Wave [place]: 81 EKG Severity - ABNORMAL ECG - EKG Impression: SINUS RHYTHM EKG Impression: PROBABLE LEFT ATRIAL ABNORMALITY EKG Impression: NONSPECIFIC INTRAVENTRICULAR CONDUCTION DELAY EKG Impression: ANTERIOR INFARCT, OLD Electronically Signed By: Dorian Lewis 19-Oct-2017 13:05:33
--- NOTE | 2017-10-19 11:57 | ASMTCMCOM ---
CM Note CM Note Notes: Patient admitted after experiencing SORIA, chest pain, SOB, and rigors. He traveled from [place] to [place] and drove to altitude prior to experiencing symptoms. He is in town visiting his son Alan. Patient is being worked up for acute hypoxic respiratory failure likely related to acute systolic heart failure. He is also presenting with sepsis. ID has consulted and is managing his IV antibiotics. I spoke wtih patient and his son. Patient was planning to fly back to [place] Tuesday 10/24, and I expressed that this may not be recommended and that he should consider the possibility of convalescing here. He understands. We can provide an airline excuse if needed. Case Management will follow. Date Signed: 10/19/2017 11:56 AM Electronically Signed By:Iveth Mcdonald RN
[2017-10-19] MEDS ORDERED: HEPARIN 5,000 UNIT/0.5 ML INJ SC SCH (14:00)
--- NOTE | 2017-10-19 14:56 | PDINTPN ---
Group Fitness Instructor Progress Note Assessment/Plan: Assessment/plan: 47 yo morbidly obese M visiting from [place] who drove directly to [place] ( [phone]) and complained of SOB, fevers and chills so came to ER where he was hypotensive and in presumed septic shock given fever, elevated WBC and PCT. He also had CHF suggested on his CXR and his CXR and his BNP was markedly elevated , albeit inthe setting of PAMELA with a creatinine of 1.7 (no previously known CKD) . His troponin was elevated and continued to rise on 10/19, but cardiology suspected injury 2/2 sepsis rather than ACS. He responded well to IVF and his echo showed an EF of 55% despite a history suggestive otherwise. An abdominal US was negative. * Sepsis from presumed bacterial source though Bcx negative. Id eval appreciated and source seems likely related to chronic lymphedema/CRISTIANA with subsequent cellulitis. He has had long standing issues of wound healing in this area as well and was followed by wound care in [place]. Abx changed to Ancef today; wbc decreasing and afebrile. I do not favor systemic steroids. A 2017, single- center study published in CHEST compared 94 patients split evenly by SOFA score into treatment with vitamin C, thiamine, and hydrocortisone and showed a significant improvement in mortality and organ dysfunction with shorter pressor duration over a 7-month period. These encouraging findings have not been adopted by current sepsis guidelines. * CHF- his EF is reasonable though I suspect chronic right heart failure. His echo is very difficult to interpret given his massive obesity. Will d/w cards the significance of the troponin of 5 today, but I am still suspect of subendocardial "leak" over ACS. * PAMELA- slight improvement in creatinine today with adequate UOP. Likely 2/2 hypotension/ATN. Continue to observe. * Subjective: reports improved mental status and vague abdominal pain Objective: Vital Signs Temp Pulse Resp BP Pulse Ox 36.8 C 87 24 H 119/61 96 10/19/17 08:00 10/19/17 08:00 10/19/17 08:00 10/19/17 08:00 10/19/17 08:00 Laboratory Results 10/19/17 04:57 10/19/17 04:57 10/18/17 10/19/17 10/20/17 05:59 05:59 05:59 Intake Total 6335 Output Total 650 Balance 5685 PT 17.5 SEC (12.0-15.0) H 10/18/17 11:50 INR 1.42 (0.83-1.16) H 10/18/17 11:50 Physical Exam - Physical Exam General Appearance: alert, no apparent distress, obese EENT: PERRL/EOMI Neck: supple Respiratory: lungs clear, normal breath sounds, No respiratory distress, No accessory muscle use Cardiac/Chest: regular rate, rhythm, edema Abdomen: non-tender, soft, No distended, No guarding, No rebound, No mass, No McBurney's point tender Skin: warm/dry, other, No cyanosis, No diaphoresis Lymphatic: no adenopathy Extremities: pedal edema, swelling Neuro/Psych: alert, normal mood/affect, oriented x 3 ICD10 Worksheet Patient Problems: Problems Problem Status Onset CHF (congestive heart failure) Acute Elevated troponin Acute
--- NOTE | 2017-10-19 15:42 | HOSPPROG ---
Hospitalist Progress Note Assessment/Plan: # Sepsis-(fever and leukocytosis at admit ) WBC down to 16 this am - Abd US ( reviewed) negative - skin suspected source received IVF resuscitation overnight - procalcitonin - 15 - continue Ancef for skin source - follow blood cultures # Hypotension - resolved after IVF resuscitation - SBP 100's - continue to hold home BP meds # Acute hypoxic respiratory failure - at presentation - pulm edema on CXR ECHO (reviewed) normal appearing EF oxygen saturations 96% on 3L - weaning off supplemental O2 - cont noctural CPAP #PAMELA - suspect 2/2 hypoperfusion with sepsis - creatinine 1.7-> 1.6 - renally dose meds - follow after hydration - hold on diuretics # Indeterminate troponin- suspect demand with acute illness - trop 1.3-> 5.3 EKG (personally reviewed and interpreted) no acute ischemic changes - trend - will need risk stratification ultimately - cont ASA and BB when BP can tolerate # morbid obesity- BMI 68 # proph - lovenox BID # diet- cardiac # dispo - > 2MN as remains acutely ill requiring care for sepsis I have discussed the case with Dr. Garibay - will trend troponins - no need for urgent catheterization - ultimate risk stratification needed Subjective: feeling better today Objective: Vital Signs Temp Pulse Resp BP Pulse Ox 37.3 C 80 24 H 124/59 H 97 10/19/17 15:00 10/19/17 15:00 10/19/17 15:00 10/19/17 15:00 10/19/17 15:00 Laboratory Results 10/19/17 04:57 10/19/17 14:55 10/18/17 10/19/17 10/20/17 05:59 05:59 05:59 Intake Total 6335 Output Total 650 Balance 5685 PT 17.5 SEC (12.0-15.0) H 10/18/17 11:50 INR 1.42 (0.83-1.16) H 10/18/17 11:50 - Physical Exam Constitutional: obese Eyes: anicteric sclera Ears, Nose, Mouth, Throat: moist mucous membranes Cardiovascular: regular rate and rhythym Respiratory: No expiratory wheeze Gastrointestinal: normoactive bowel sounds, No tenderness Genitourinary: no bladder fullness Skin: warm Musculoskeletal: No asymmetric calves Neurologic: AAOx3 Psychiatric: interacting appropriately Lymph, Heme, Immunologic: no cervical LAD ICD10 Worksheet Patient Problems: Problems Problem Status Onset CHF (congestive heart failure) Acute Elevated troponin Acute
--- NOTE | 2017-10-19 16:14 | WOCRNPDOC ---
WOCRN Advanced Assessment Note - Skin Integrity Problem, Advanced Assess Bilateral Lower Leg Dressing Type: Open to Air Ernestine Wound Tissue: Erythema, Lipodermatosclerosis, Hemosiderin Staining, Venous Dermatitis Lymphedema Present: Yes (+ stemmers) Peripheral Edema Location & Description: Bilateral 3+ pitting edema Skin Integrity Problem Comment: Patient is morbidly obese and has chronic venous stasis changes with no open wounds at this time. Right calf 80.5cm circumference and left calf 67.5cm circumference. Too large for Spandigrips but orders for compression with Puma wraps will be written. Wound care does not need to follow. Patient to follow up in [place] with his wound clinic and continue his outpatient lymphedema therapy there.
[2017-10-19] MEDS ORDERED: NON-FORMULARY NEW DRUG (Carvedilol [Coreg] 12.5 MG) PO SCH (16:43)
[2017-10-19] MEDS ORDERED: CARVEDILOL 25 MG TAB PO SCH (17:00)
[2017-10-19] MEDS: CARVEDILOL 25 MG TAB PO SCH (17:10)
[2017-10-19] MEDS: CALCIUM CARBONATE 500 MG CHEWABLE TAB PO PRN (19:49)
[2017-10-20] MEDS: ceFAZolin 2 GM/SWFI 2 GM/20 ML SYR IVP SCH ×3 (01:07→18:09)
--- NOTE | 2017-10-20 07:30 | SOAPPROG ---
SOAP Progress Note Assessment/Plan: Assessment: 1. Hypertension 2. Hyperlipidemia 3. Diastolic heart failure with elevated BNP and mildly elevated troponin. 4. On going evaluation for sepsis. 5. Renal insufficiency query acute on chronic 6. Anemia associated with low ferritin/iron 7. Morbid obesity 8. Sleep apnea 10/20/17 07:27 Impression: Stable hemodynamics without chest pain, shortness of breath. Improving clinical status. ECG remains normal without acute ST-T changes concerning for injury. Troponin did rise to 5 and fall back to baseline. This was not associated with any symptoms or change in status. Recommendations: Continue current care plan with resumption of statin therapy and low-dose beta- krista prior to discharge. Prior to discharge will consider how to further risk stratify the patient based on his morbid obesity imaging would be difficult. Would benefit from high-dose technetium imaging with solid state camera. This could be done as an outpatient at [facility]. 10/19/17 09:08 Impression: Stable hemodynamics overnight with normal heart rate blood pressure. Patient is awake laying flat on BiPAP. He has no chest pain or shortness of breath. There is no evolution of his ECG. Troponins are stable/ mildly elevated without upward trend. Echo does not reveal regional wall motion abnormalities. There is preserved LV systolic function. Tissue Doppler does not suggest elevated end-diastolic pressures. No source of infection as yet identified. Recommendations: Continue supportive care with antibiotics per Medicine Service. Hold antihypertensives. No further cardiac evaluation at this point. Further evaluation pending clinical course. Aspirin to be continued. Statin therapy prior to discharge. Resume beta-krista prior to discharge. Subjective: Uneventful night. No chest pain, shortness of breath. Patient is sleeping flat without PND orthopnea. Clinical status improving. Objective: Medications Generic Name Dose Route Start Last Admin Trade Name Freq PRN Reason Stop Dose Admin Aspirin Buffered 325 mg 10/18/17 13:45 10/19/17 09:15 Aspirin Ec PO 04/16/18 13:44 325 mg DAILY [facility] Carvedilol 12.5 mg 10/19/17 17:00 10/19/17 17:10 Coreg PO 04/17/18 16:59 12.5 mg BID [facility] Vital Signs Temp Pulse Resp BP Pulse Ox 37.3 C 64 24 H 140/87 H 95 10/20/17 04:00 10/20/17 04:00 10/20/17 04:00 10/20/17 04:00 10/20/17 04:00 Laboratory Results 10/20/17 05:30 10/20/17 05:30 10/19/17 10/20/17 10/21/17 05:59 05:59 05:59 Intake Total 6335 1578 Output Total 650 400 Balance 5685 1178 PT 17.5 SEC (12.0-15.0) H 10/18/17 11:50 INR 1.42 (0.83-1.16) H 10/18/17 11:50 Troponin elevation as below Laboratory Tests 10/19/17 10/19/17 10/20/17 04:57 14:55 05:30 Troponin I 5.360 H 4.650 H 1.810 H Physical Exam - Physical Exam General Appearance: no apparent distress Neck: non-tender Respiratory: decreased breath sounds, rhonchi Cardiac/Chest: regular rate, rhythm Abdomen: soft Skin: warm/dry Neuro/Psych: oriented x 3, No facial droop ICD10 Worksheet Patient Problems: Problems Problem Status Onset CHF (congestive heart failure) Acute Elevated troponin Acute Review of Systems - Review of Systems Constitutional: denies: chills, fever EENTM: no symptoms reported Respiratory: no symptoms reported Cardiac: no symptoms reported Gastrointestinal/Abdominal: no symptoms reported Genitourinary: no symptoms Musculoskelatal: no symptoms Skin: no symptoms Neurological: no symptoms Hematologic/Lymphatic: no symptoms reported Immunologic/allergic: no symptoms reported All Other Systems: Reviewed and Negative
[2017-10-20] MEDS ORDERED: PERFLUTREN LIPID MICROSPHERES 1.1 MG/ML VIAL IV ONE (07:44)
[2017-10-20] MEDS: CARVEDILOL 25 MG TAB PO SCH ×2 (09:29→21:16)
[2017-10-20] MEDS: ASPIRIN EC 325 MG TAB PO SCH (09:29)
[2017-10-20] MEDS: ENOXAPARIN 60 MG/0.6 ML SYR SC SCH ×2 (09:32→21:17)
--- NOTE | 2017-10-20 11:44 | ECHO ---
[email or web address] [id number] Main: [phone] Fax: Transthoracic Echocardiogram Name: ROSETTE TRIMBLE MR#: [id number] Study Date: 10/20/2017 Study Time: 10:49 AM Date of : 1970 Age: 47 year(s) Height: ( ) Weight: ( ) BSA: Gender: Male Examination: Limited Echo with Definity Indication: Elevated Troponins Image Quality: Contrast: Requested by: Jay Garibay BP: 147 mmHg/89 mmHg Heart Rate: Rhythm: Indication: Elevated Troponins Procedure Staff Engineer Remote Control Diesel: Darrell Nash RDCS Reading Physician: Jay Garibay MD Requesting Provider: Conclusions: No regional wall motion abnormalities with preserved ejection fraction. Measurements: Chambers Valvular Assessment AV/MV Valvular Assessment TV/PV Normal Normal Normal Name Value Range Name Value Range Name Value Range Continued Measurements: Findings: Exam Comments: This is a limited echo to evaluate for LV function using Definity echo enhancement. .165mg of Definity imaging enhancment was utilitzed. There are no obvious wall motion abnormalities.. (No Signature Object) Patient: ROSETTE TRIMBLE Study Date: 10/20/2017 Page 1 of 1 10:49 AM [id number]
--- NOTE | 2017-10-20 13:42 | PCMIDPN ---
Assessment/Plan: Assessment/Plan: 1. Sepsis related to RLE cellulitisL: - some impromvent today noted - conitnue with ancef therapy as is - discussed importance of LE elevation -wbc trending down. creatinien improved as well. blod cx ngtd Subjective: afebrile. feels better. denies sob or diarrhea. redness better Objective: Vital Signs Temp Pulse Resp BP Pulse Ox 36.7 C 67 18 147/89 H 91 L 10/20/17 07:48 10/20/17 07:48 10/20/17 07:48 10/20/17 07:48 10/20/17 07:48 Laboratory Results 10/20/17 05:30 10/20/17 05:30 10/19/17 10/20/17 10/21/17 05:59 05:59 05:59 Intake Total 6335 1578 Output Total 650 400 Balance 5685 1178 - Physical Exam General Appearance: alert, no apparent distress Respiratory: lungs clear Cardiac/Chest: regular rate, rhythm Extremities: swelling Abdomen: normal bowel sounds, non-tender, soft, distended, other (obese) Skin: erythema (RLE erytehma involing most of the leg with some resolution on upper leg and thigh. warm still . chornic venous stasis dermatiis noted b/l) ICD10 Worksheet Patient Problems: Problems Problem Status Onset CHF (congestive heart failure) Acute Elevated troponin Acute
--- NOTE | 2017-10-20 17:45 | HOSPPROG ---
Hospitalist Progress Note Assessment/Plan: # Sepsis-(fever and leukocytosis at admit ) received IVF resuscitation on admit - procalcitonin - 15 WBC continues to trend down to 21-> 11 this am - Abd US (reviewed) negative - skin suspected source - continue Ancef for skin source - follow blood cultures # Hypotension - resolved after IVF resuscitation - SBP trending back up - restarted carvedilol # Acute hypoxic respiratory failure - at presentation - pulm edema on CXR ECHO (reviewed) normal appearing EF oxygen saturations 93% on RA - weaning off supplemental O2 - cont noctural CPAP #PAMELA - suspect 2/2 hypoperfusion with sepsis - creatinine 1.7-> 1.2 - renally dose meds - follow after hydration - hold on diuretics # Indeterminate troponin- suspect demand with acute illness - trop 1.3-> 5.3-> 1.8 EKG (personally reviewed and interpreted) no acute ischemic changes - repeat Echo today without WMA - will need risk stratification ultimately - cont ASA and BB when BP can tolerate # morbid obesity- BMI 68 # proph - lovenox BID # diet- cardiac # dispo - > 2MN as remains acutely ill requiring care for sepsis I have discussed the case with Dr. Garibay - will need ultimate risk stratification Subjective: feeling better Objective: Vital Signs Temp Pulse Resp BP Pulse Ox 37.1 C 74 18 157/93 H 93 10/20/17 15:40 10/20/17 15:40 10/20/17 15:40 10/20/17 15:40 10/20/17 15:40 Laboratory Results 10/20/17 05:30 10/20/17 05:30 10/19/17 10/20/17 10/21/17 05:59 05:59 05:59 Intake Total 6335 1578 Output Total 650 400 500 Balance 5685 1178 -500 PT 17.5 SEC (12.0-15.0) H 10/18/17 11:50 INR 1.42 (0.83-1.16) H 10/18/17 11:50 - Physical Exam Constitutional: obese Eyes: anicteric sclera Ears, Nose, Mouth, Throat: moist mucous membranes Cardiovascular: regular rate and rhythym Respiratory: no respiratory distress, No expiratory wheeze Gastrointestinal: normoactive bowel sounds Genitourinary: no bladder fullness Skin: warm Musculoskeletal: No asymmetric calves Neurologic: AAOx3 Psychiatric: interacting appropriately Lymph, Heme, Immunologic: no cervical LAD ICD10 Worksheet Patient Problems: Problems Problem Status Onset CHF (congestive heart failure) Acute Elevated troponin Acute
[2017-10-20] MEDS: SIMETHICONE 80 MG TAB CHEW PO SCH ×2 (18:09→21:16)
[2017-10-21] MEDS: ceFAZolin 2 GM/SWFI 2 GM/20 ML SYR IVP SCH ×3 (00:56→16:57)
[2017-10-21] MEDS: ACETAMINOPHEN 325 MG TAB PO PRN (00:56)
[2017-10-21] MEDS: CALCIUM CARBONATE 500 MG CHEWABLE TAB PO PRN (00:59)
[2017-10-21] MEDS: CARVEDILOL 25 MG TAB PO SCH ×2 (09:37→21:32)
[2017-10-21] MEDS: SIMETHICONE 80 MG TAB CHEW PO SCH ×4 (09:37→21:24)
[2017-10-21] MEDS: ENOXAPARIN 60 MG/0.6 ML SYR SC SCH ×2 (09:37→21:16)
[2017-10-21] MEDS: ASPIRIN EC 325 MG TAB PO SCH (09:37)
[2017-10-21 10:41] LABS: PLATELET COUNT 139 10^3/uL (150-400)
--- NOTE | 2017-10-21 11:11 | HOSPPROG ---
Hospitalist Progress Note Assessment/Plan: # sepsis (febrile, leuk) suspect d/t RLE cellulitis - physiology has resolved # RLE cellulitis - unclear if worse today; possible new area of erythema is rash rather than cellulitis - will d/w with ID, cont ancef for now # NSTEMI - cards consulting; will need risk stratification at some point - echo without WMA # PAMELA, pre-renal - resovled # AHRF - possible d/t pulm edema on CXR - resolved # morbid obesity - BMI 68 # hypotension - resolved, now back on coreg # dvt ppx - lovenox Subjective: worried that the redness on his R thigh is worse than before Objective: Vital Signs Temp Pulse Resp BP Pulse Ox 37.1 C 75 18 169/101 H 98 10/21/17 07:54 10/21/17 09:37 10/21/17 07:54 10/21/17 09:37 10/21/17 07:54 Microbiology 10/18/17 15:20 Urine Culture - Final Unspecified Three [place] Types Laboratory Results 10/21/17 10:30 10/20/17 05:30 10/20/17 10/21/17 10/22/17 05:59 05:59 05:59 Intake Total 1578 Output Total 400 800 Balance 1178 -800 PT 17.5 SEC (12.0-15.0) H 10/18/17 11:50 INR 1.42 (0.83-1.16) H 10/18/17 11:50 chart reviewed US reviewed echo's reviewed - Physical Exam Constitutional: obese Cardiovascular: regular rate and rhythym, no murmur, rub, or gallop Respiratory: no respiratory distress, no rales or rhonchi Gastrointestinal: soft, non-tender abdomen, no palpable masses Musculoskeletal: other (significant R leg cellulitis with bright erythema on R upper thigh; does not extend above previous darby but is notably red) ICD10 Worksheet Patient Problems: Problems Problem Status Onset CHF (congestive heart failure) Acute Elevated troponin Acute
--- NOTE | 2017-10-21 11:50 | PCMIDPN ---
Assessment/Plan: Assessment: Plan: Objective: Vital Signs Temp Pulse Resp BP Pulse Ox 37.1 C 75 18 169/101 H 98 10/21/17 07:54 10/21/17 09:37 10/21/17 07:54 10/21/17 09:37 10/21/17 07:54 Microbiology 10/18/17 15:20 Urine Culture - Final Unspecified Three [place] Types Laboratory Results 10/21/17 10:30 10/20/17 05:30 10/20/17 10/21/17 10/22/17 05:59 05:59 05:59 Intake Total 1578 Output Total 400 800 Balance 1178 -800 ICD10 Worksheet Patient Problems: Problems Problem Status Onset CHF (congestive heart failure) Acute Elevated troponin Acute
[2017-10-21] MEDS: LINEZOLID 600 MG TAB PO SCH ×2 (12:44→21:50)
--- NOTE | 2017-10-21 15:07 | PCMIDPN ---
Assessment/Plan: Assessment/Plan: * Sepsis due to right lower extremity cellulitis: Sepsis parameters improved with normalization of white blood cell count and improvement in creatinine. Cellulitic change advisor right lower extremity, most notably over thigh has extended. Now has circumferential erythema over approximately 75% of thigh. No bulla or crepitus noted. No areas of purulence. Given extension of cellulitis, will add linezolid to cefazolin to combat streptococcal toxin production; will also have added activity against MRSA. Favor linezolid over clindamycin given high resistance rates in group A Streptococcus to clindamycin now limit its utility for, bedding toxin production. Cellulitis has been demarcated with pen today to assess for any progression. Some increase in prominence may be increased activity with some brief periods of dependence. I have contacted his PCP in [place] with request for information regarding prior culture data when he had necrotizing fasciitis which he believes was related to Staphylococcus. 10/21/17 15:04 Subjective: Overall patient feels significantly improved but complains of worsening pain and erythema in right thigh. Objective: Vital Signs Temp Pulse Resp BP Pulse Ox 37.1 C 75 18 169/101 H 98 10/21/17 07:54 10/21/17 09:37 10/21/17 07:54 10/21/17 09:37 10/21/17 07:54 Microbiology 10/18/17 15:20 Urine Culture - Final Unspecified Three [place] Types Laboratory Results 10/21/17 10:30 10/20/17 05:30 10/20/17 10/21/17 10/22/17 05:59 05:59 05:59 Intake Total 1578 Output Total 400 800 Balance 1178 -800 Cefazolin # 3 Blood cultures x2 no growth T-max 37.9 degrees - Physical Exam General Appearance: alert, no apparent distress EENT: No scleral icterus, No thrush Cardiac/Chest: regular rate, rhythm, systolic murmur (2/6 left upper sternal border) Extremities: inflammation (Right lower extremity shows venous insufficiency changes with superimposed erythema circumferentially from knee to ankle; more splotchy appearing erythema over approximately 75% of thigh, more prominent independent regions, which has extended past that noted at time of initial presentation) Abdomen: non-tender, No distended Skin: No embolic lesions ICD10 Worksheet Patient Problems: Problems Problem Status Onset CHF (congestive heart failure) Acute Elevated troponin Acute
--- NOTE | 2017-10-21 16:29 | ASMTCMCOM ---
CM Note CM Note Notes: Pt cellulitis worsening, still being worked up by cardiology. No therapies ordered, dc poc still unclear at this point, CM will continue to follow. Pt visiting son from, he lives in [facility] DC Plan: TBD Date Signed: 10/21/2017 04:29 PM Electronically Signed By:Annie Wright RN
[2017-10-22] MEDS: ceFAZolin 2 GM/SWFI 2 GM/20 ML SYR IVP SCH ×2 (02:35→09:30)
[2017-10-22] MEDS: SIMETHICONE 80 MG TAB CHEW PO SCH ×4 (09:30→20:26)
[2017-10-22] MEDS: ENOXAPARIN 60 MG/0.6 ML SYR SC SCH ×3 (09:30→20:37)
[2017-10-22] MEDS: ASPIRIN EC 325 MG TAB PO SCH (09:30)
[2017-10-22] MEDS: CARVEDILOL 25 MG TAB PO SCH ×2 (09:30→20:27)
[2017-10-22] MEDS: LINEZOLID 600 MG TAB PO SCH ×2 (09:30→20:27)
[2017-10-22] MEDS ORDERED: FUROSEMIDE 40 MG TAB PO PRN (09:52)
--- NOTE | 2017-10-22 09:54 | HOSPPROG ---
Hospitalist Progress Note Assessment/Plan: # sepsis (febrile, leuk) d/t RLE cellulitis - physiology has resolved # RLE cellulitis - better today - linezolid added yesterday by ID - will try to get a prior auth for this - cont ancef # NSTEMI - cards consulting; will need risk stratification at some point - echo without WMA # PAMELA, pre-renal - resolved # AHRF - possible d/t pulm edema on CXR - resolved # morbid obesity - BMI 68 # htn - all meds restarted since hypotension has improved # dvt ppx - lovenox Subjective: feels like the rash is better Objective: Vital Signs Temp Pulse Resp BP Pulse Ox 36.8 C 64 18 175/104 H 97 10/22/17 07:36 10/22/17 09:30 10/22/17 07:36 10/22/17 09:30 10/22/17 07:36 Microbiology 10/18/17 15:20 Urine Culture - Final Unspecified Three [place] Types Laboratory Results 10/21/17 10:30 10/20/17 05:30 10/21/17 10/22/17 10/23/17 05:59 05:59 05:59 Intake Total 1890 Output Total 800 900 Balance -800 990 PT 17.5 SEC (12.0-15.0) H 10/18/17 11:50 INR 1.42 (0.83-1.16) H 10/18/17 11:50 - Physical Exam Constitutional: obese Eyes: anicteric sclera Ears, Nose, Mouth, Throat: hearing normal Cardiovascular: edema Respiratory: no respiratory distress Gastrointestinal: distension Musculoskeletal: other (erythema to mid thigh, though it is less bright and warm than yesterday) ICD10 Worksheet Patient Problems: Problems Problem Status Onset CHF (congestive heart failure) Acute Elevated troponin Acute
[2017-10-22] MEDS ORDERED: MINOXIDIL 2.5 MG TAB PO SCH (10:00)
--- NOTE | 2017-10-22 11:22 | ASMTCMCOM ---
CM Note CM Note Notes: asked CM to check into an RX for pt called Zyvox . CM spoke to Brandi at the in [facility], per pt's insurance plan [facility] is the preferred pharmacy. Out of pocket is about is very expensive, so this medication requires a prior authorization and likely diagnosis codes from [place] before approval. notified CM talked with pt about abx and also he may have to change his flight, right now he is scheduled to Fly out on Thursday, can provide pt with letter. DC Plan: Independent Date Signed: 10/22/2017 11:21 AM Electronically Signed By:Annie Wright RN
--- NOTE | 2017-10-22 15:26 | PCMIDPN ---
Assessment/Plan: Assessment/Plan: * Sepsis due to right lower extremity cellulitis: Sepsis has resolved with significant improvement in right lower extremity cellulitis today. Thigh erythema much fainter and has not progressed beyond areas demarcated. Unclear if this is related to more time with antibiotic therapy versus addition of linezolid. Will continue both cefazolin and linezolid for next 24 hr with plans to transition to monotherapy thereafter. Will have case management assess access to linezolid as this would be good choice for transition to oral therapy in the setting of his morbid obesity as suspect other typical oral antibiotics used for cellulitis will likely have difficulty achieving therapeutic levels. Prior hospitalization records from [place] reviewed with cultures showing MSSA, group B Streptococcus, group G Streptococcus, and Acinetobacter. Findings and plan were reviewed with patient and care coordinated with Dr. Bell today. 10/22/17 15:22 Subjective: Patient with less thigh tenderness. Objective: Vital Signs Temp Pulse Resp BP Pulse Ox 37.2 C 69 20 177/99 H 91 L 10/22/17 15:17 10/22/17 15:17 10/22/17 15:17 10/22/17 15:17 10/22/17 15:17 Microbiology 10/18/17 15:20 Urine Culture - Final Unspecified Three [place] Types Laboratory Results 10/21/17 10:30 10/20/17 05:30 10/21/17 10/22/17 10/23/17 05:59 05:59 05:59 Intake Total 1890 Output Total 800 900 800 Balance -800 990 -800 Cefazolin # 4 Linezolid # 2 Blood cultures x2 no growth - Physical Exam General Appearance: alert, no apparent distress EENT: No scleral icterus, No thrush Extremities: inflammation (Right lower extremity with significant decrease in intensity of thigh erythema with decreased tenderness and warmth; right lower extremity below knee similar in appearance with significant skin changed from venous insufficiency) Abdomen: non-tender - Time Spent With Patient Time Spent with Patient: greater than 35 minutes Time Spent with Patient: Greater than 35 minutes spent on this patients care, greater than 50% of time spent counseling, educating, and coordinating care regarding the above mentioned plan. ICD10 Worksheet Patient Problems: Problems Problem Status Onset CHF (congestive heart failure) Acute Elevated troponin Acute
[2017-10-22] MEDS ORDERED: ceFAZolin 2 GM/DEXTROSE 100 ML IV SCH (18:00)
[2017-10-22] MEDS: ceFAZolin 2 GM in D5W 100 ML IV SCH (18:38)
[2017-10-22] MEDS ORDERED: ceFAZolin 2 GM in D5W 100 ML IV SCH (22:00)
[2017-10-23] MEDS: ceFAZolin 2 GM in D5W 100 ML IV SCH ×3 (03:08→17:51)
[2017-10-23 04:55] LABS: PLATELET COUNT 184 10^3/uL (150-400)
[2017-10-23] MEDS: CARVEDILOL 25 MG TAB PO SCH ×2 (08:03→20:22)
[2017-10-23] MEDS: ENOXAPARIN 60 MG/0.6 ML SYR SC SCH ×2 (08:03→20:23)
[2017-10-23] MEDS: ASPIRIN EC 325 MG TAB PO SCH (08:03)
[2017-10-23] MEDS: MINOXIDIL 10 MG TAB PO SCH (08:04)
[2017-10-23] MEDS: LINEZOLID 600 MG TAB PO SCH ×2 (08:04→20:22)
[2017-10-23] MEDS: SIMETHICONE 80 MG TAB CHEW PO SCH ×4 (08:05→22:42)
--- NOTE | 2017-10-23 08:38 | HOSPPROG ---
Hospitalist Progress Note Assessment/Plan: # sepsis (febrile, leuk) d/t RLE cellulitis - physiology has resolved # RLE cellulitis - better today - linezolid added yesterday by ID - CM working on prior auth- could be outpatient monotherapy - cont ancef IV # NSTEMI - cards to re-eval today and make recs on ischemic eval as he may be ready for dc over the weekend - discussed with Pinky - cont asa/BB - start low dose statin (LDL 77) # PAMELA, pre-renal - resolved # AHRF - possible d/t pulm edema on CXR - resolved # morbid obesity - BMI 68 # MARYANN - CPAP # htn - restarted meds, follow (BP still elevated) # dvt ppx - lovenox # dispo - has a flight tomorrow at 5p to [place], would like to make this; I told him at this point I cannot guarantee he will be ready for dc tomorrow Subjective: denies CP or biarrhea; leg slightly less painful Objective: Vital Signs Temp Pulse Resp BP Pulse Ox 36.9 C 64 20 175/105 H 99 10/23/17 07:14 10/23/17 07:14 10/23/17 07:14 10/23/17 07:14 10/23/17 07:14 Laboratory Results 10/23/17 04:33 10/23/17 04:33 10/22/17 10/23/17 10/24/17 05:59 05:59 05:59 Intake Total 1890 Output Total 900 2120 Balance 990 -2120 PT 17.5 SEC (12.0-15.0) H 10/18/17 11:50 INR 1.42 (0.83-1.16) H 10/18/17 11:50 - Physical Exam Constitutional: obese Cardiovascular: regular rate and rhythym, no murmur, rub, or gallop Respiratory: no respiratory distress, no rales or rhonchi Gastrointestinal: soft, non-tender abdomen, no palpable masses Musculoskeletal: other (pink erythema and warmth more coalesced on R leg to thigh, still within confines of marking; did not undress lower leg this morning ) ICD10 Worksheet Patient Problems: Problems Problem Status Onset CHF (congestive heart failure) Acute Elevated troponin Acute
[2017-10-23] MEDS: ATORVASTATIN CALCIUM 10 MG TAB PO SCH ×2 (09:32→09:39)
--- NOTE | 2017-10-23 09:52 | SOAPPROG ---
SOAP Progress Note Assessment/Plan: Assessment: 1. Hypertension 2. Hyperlipidemia 3. Diastolic heart failure with elevated BNP and mildly elevated troponin. 4. On going evaluation for sepsis. 5. Renal insufficiency query acute on chronic 6. Anemia associated with low ferritin/iron 7. Morbid obesity 8. Sleep apnea 10/23/17 09:50 Impression: Follow-up visit. Last seen the . Patient has had a stable cardiovascular status since that time. He has had no chest pain. He has been walking without limitations. His other medical problems are improving and he is planning for discharge sometime this weekend to travel back to [place]. The patient did have a mild elevation in troponin. This was associated with a normal echocardiogram and a stable EKG. In light of his morbid obesity, hypertension, hyperlipidemia risk stratification is recommended within 30 days. He is currently on good medical therapy including aspirin statin therapy and beta-krista. Based on his activity around the wards I think he is stable to travel back to [place] with outpatient follow-up. This was discussed with him at the bedside. 10/20/17 07:27 Impression: Stable hemodynamics without chest pain, shortness of breath. Improving clinical status. ECG remains normal without acute ST-T changes concerning for injury. Troponin did rise to 5 and fall back to baseline. This was not associated with any symptoms or change in status. Recommendations: Continue current care plan with resumption of statin therapy and low-dose beta- krista prior to discharge. Prior to discharge will consider how to further risk stratify the patient based on his morbid obesity imaging would be difficult. Would benefit from high-dose technetium imaging with solid state camera. This could be done as an outpatient at [facility]. 10/19/17 09:08 Impression: Stable hemodynamics overnight with normal heart rate blood pressure. Patient is awake laying flat on BiPAP. He has no chest pain or shortness of breath. There is no evolution of his ECG. Troponins are stable/ mildly elevated without upward trend. Echo does not reveal regional wall motion abnormalities. There is preserved LV systolic function. Tissue Doppler does not suggest elevated end-diastolic pressures. No source of infection as yet identified. Recommendations: Continue supportive care with antibiotics per Medicine Service. Hold antihypertensives. No further cardiac evaluation at this point. Further evaluation pending clinical course. Aspirin to be continued. Statin therapy prior to discharge. Resume beta-krista prior to discharge. Subjective: Doing well without chest pain, shortness of breath. He has no PND orthopnea. He is resting comfortably flat in bed with his CPAP on. Overall he is improving. Objective: Vital Signs Temp Pulse Resp BP Pulse Ox 36.9 C 64 20 175/105 H 99 10/23/17 07:14 10/23/17 07:14 10/23/17 07:14 10/23/17 07:14 10/23/17 07:14 Laboratory Results 10/23/17 04:33 10/23/17 04:33 10/22/17 10/23/17 10/24/17 05:59 05:59 05:59 Intake Total 1890 Output Total 900 2120 Balance 990 -2120 PT 17.5 SEC (12.0-15.0) H 10/18/17 11:50 INR 1.42 (0.83-1.16) H 10/18/17 11:50 Physical Exam - Physical Exam General Appearance: alert, no apparent distress Neck: supple Respiratory: lungs clear Cardiac/Chest: regular rate, rhythm Abdomen: normal bowel sounds Skin: warm/dry Neuro/Psych: alert, No facial droop ICD10 Worksheet Patient Problems: Problems Problem Status Onset CHF (congestive heart failure) Acute Elevated troponin Acute Review of Systems - Review of Systems Constitutional: denies: chills, fever Respiratory: no symptoms reported Cardiac: no symptoms reported Gastrointestinal/Abdominal: no symptoms reported
--- NOTE | 2017-10-23 10:40 | PCMIDPN ---
Assessment/Plan: 1. Sepsis secondary to right lower extremity cellulitis: Agree with Dr. Bell that the patient will likely not be able to go on an airplane tomorrow night. I have asked him to please call the airline to let them know. Continue both Ancef and linezolid as is for now. Agree with transition to linezolid monotherapy likely in the next 24-48 hours,which is a better medication overall in the setting of his morbid obesity as outlined by Dr. Velasquez. His cellulitis is thankfully improving, albeit slowly. Of note, our nurse, Akosua was able to get oral linezolid approved for this patient. It will be filled at the [facility] in [place]! Subjective: Frustrated about being hospitalized. Feels that he is getting better. No diarrhea. Objective: Ancef 2 g IV q.8 hours day 5 Linezolid 600 mg p. O. Q.12 hours day 3 T-max 37.5 degrees Vital Signs Temp Pulse Resp BP Pulse Ox 36.9 C 64 20 175/105 H 99 10/23/17 07:14 10/23/17 07:14 10/23/17 07:14 10/23/17 07:14 10/23/17 07:14 Laboratory Results 10/23/17 04:33 10/23/17 04:33 10/22/17 10/23/17 10/24/17 05:59 05:59 05:59 Intake Total 1890 Output Total 900 2120 Balance 990 -2120 Blood cultures negative from October 18 - Physical Exam General Appearance: no apparent distress, obese Extremities: other (Lower extremities are wrapped; I did not take them down given that the dressings were just changed. His right upper thigh shows some pinkish erythema that is blanching and has not extended beyond demarcated margins. It is not significantly tender or indurated. No bullae. No lack of sensation.) ICD10 Worksheet Patient Problems: Problems Problem Status Onset CHF (congestive heart failure) Acute Elevated troponin Acute
[2017-10-24] MEDS: ceFAZolin 2 GM in D5W 100 ML IV SCH ×3 (02:37→17:47)
[2017-10-24] MEDS: CARVEDILOL 25 MG TAB PO SCH (08:31)
[2017-10-24] MEDS: MINOXIDIL 10 MG TAB PO SCH (08:31)
[2017-10-24] MEDS: ATORVASTATIN CALCIUM 10 MG TAB PO SCH (08:31)
[2017-10-24] MEDS: ASPIRIN EC 325 MG TAB PO SCH (08:32)
[2017-10-24] MEDS: SIMETHICONE 80 MG TAB CHEW PO SCH ×4 (08:32→21:25)
[2017-10-24] MEDS: LINEZOLID 600 MG TAB PO SCH ×2 (09:08→21:25)
[2017-10-24] MEDS: ENOXAPARIN 60 MG/0.6 ML SYR SC SCH ×2 (09:10→21:02)
--- NOTE | 2017-10-24 09:13 | HOSPPROG ---
Hospitalist Progress Note Assessment/Plan: #Sepsis: resolved. Due to cellulitis. Using Linezolid given weight and inability to achieve therapeutic levels on other orals. Med has been approved and ready at [facility] #Hypertensive urgency: BPs still elevated. Suspect a component of rebound HTN since was of clonidine; this has been resumed along with other BP meds -increase Metoprolol #NSTEMI: cards recs -ASA, statin, BB -will need high-dose technetium imaging scan outpatient #Morbid obesity #MARYANN: CPAP #PAMELA: resolved #AHRF: resolved #DVT ppx: lovenox #Disp: cont inpatient for BP control Subjective: DÍAZ this morning. No chest pain. Frustrated with being in hospital Objective: Vital Signs Temp Pulse Resp BP Pulse Ox 36.8 C 69 18 210/119 H 93 10/24/17 08:27 10/24/17 08:27 10/24/17 08:27 10/24/17 08:27 10/24/17 08:27 Microbiology 10/18/17 14:20 Blood Culture - Final Blood Laboratory Results 10/23/17 04:33 10/23/17 04:33 10/23/17 10/24/17 10/25/17 05:59 05:59 05:59 Intake Total 650 Output Total 2120 3035 Balance -2120 -2385 PT 17.5 SEC (12.0-15.0) H 10/18/17 11:50 INR 1.42 (0.83-1.16) H 10/18/17 11:50 - Time Spent With Patient Time Spent with Patient: greater than 35 minutes Time Spent with Patient: Greater than 35 minutes spent on this patients care, greater than 50% of time spent counseling, educating, and coordinating care regarding the above mentioned plan. - Physical Exam Constitutional: obese (morbidly ) Eyes: PERRL Ears, Nose, Mouth, Throat: moist mucous membranes Cardiovascular: regular rate and rhythym Respiratory: no respiratory distress Gastrointestinal: normoactive bowel sounds, soft, non-tender abdomen Genitourinary: No cervantes in urethra Skin: warm Musculoskeletal: other (BL legs wrapped with LE bandages) Neurologic: AAOx3 ICD10 Worksheet Patient Problems: Problems Problem Status Onset CHF (congestive heart failure) Acute Elevated troponin Acute
[2017-10-24] MEDS ORDERED: CARVEDILOL 25 MG TAB PO SCH ×3 (13:35→16:29)
[2017-10-24] MEDS ORDERED: ENALAPRILAT DIHYDRATE 1.25 MG/ML VIAL IVP PRN (16:21)
[2017-10-24] MEDS ORDERED: ENALAPRILAT DIHYDRATE 1.25 MG/ML VIAL IVP ONE (16:28)
[2017-10-24] MEDS ORDERED: LISINOPRIL 10 MG TAB PO SCH ×2 (16:30→20:00)
[2017-10-24] MEDS ORDERED: FUROSEMIDE 40 MG TAB PO PRN (16:30)
--- NOTE | 2017-10-24 16:36 | PCMIDPN ---
Assessment/Plan: Assessment: Right lower extremity cellulitis. Improved markedly since admission. Plan is for patient to discharge on oral Zyvox for completion of therapy. [facility] [place]. Patient can discharge today. Plan: 1. Discharge home today with Zyvox 600 mg p.o. Twice daily. Follow-up with PCP or at [place] in 1 week time. 10/24/17 16:36 Subjective: Patient is resting in his hospital bed. No new complaints. He states that his right leg is much less swollen and red. No fevers or chills. Objective: Cefazolin # Vital Signs Temp Pulse Resp BP Pulse Ox 36.8 C 75 20 207/123 H 92 10/24/17 15:57 10/24/17 15:57 10/24/17 15:57 10/24/17 15:57 10/24/17 15:57 Microbiology 10/18/17 14:20 Blood Culture - Final Blood Laboratory Results 10/23/17 04:33 10/23/17 04:33 10/23/17 10/24/17 10/25/17 05:59 05:59 05:59 Intake Total 650 Output Total 2120 9462 400 Balance -7430 -7219 -400 - Physical Exam General Appearance: WD/WN, alert, no apparent distress, obese, non-toxic Respiratory: lungs clear, normal breath sounds, respiratory distress Cardiac/Chest: regular rate, rhythm, No tachycardia Extremities: non-tender, pedal edema, swelling, No normal inspection Skin: normal color, warm/dry, No rash Neuro/Psych: alert, normal mood/affect, oriented x 3 ICD10 Worksheet Patient Problems: Problems Problem Status Onset CHF (congestive heart failure) Acute Elevated troponin Acute
[2017-10-25] MEDS: ceFAZolin 2 GM in D5W 100 ML IV SCH ×2 (02:00→09:52)
[2017-10-25] MEDS ORDERED: CARVEDILOL 25 MG TAB PO ONE (06:34)
[2017-10-25] MEDS ORDERED: LISINOPRIL 10 MG TAB PO SCH (06:46)
[2017-10-25] MEDS ORDERED: MINOXIDIL 10 MG TAB PO SCH (09:00)
[2017-10-25] MEDS: ASPIRIN EC 325 MG TAB PO SCH (09:47)
[2017-10-25] MEDS: LINEZOLID 600 MG TAB PO SCH ×2 (09:47→20:28)
[2017-10-25] MEDS: FUROSEMIDE 40 MG TAB PO SCH (09:47)
[2017-10-25] MEDS: SIMETHICONE 80 MG TAB CHEW PO SCH ×4 (09:47→21:41)
[2017-10-25] MEDS: ATORVASTATIN CALCIUM 10 MG TAB PO SCH (10:00)
[2017-10-25] MEDS: ENOXAPARIN 60 MG/0.6 ML SYR SC SCH ×2 (10:00→20:28)
[2017-10-25] MEDS ORDERED: LISINOPRIL 5 MG TAB PO SCH (10:00)
[2017-10-25] MEDS: MINOXIDIL 2.5 MG TAB PO SCH ×2 (10:18→20:28)
--- NOTE | 2017-10-25 11:05 | PCMIDPN ---
Assessment/Plan: 1. Sepsis secondary to right lower extremity cellulitis: The previous demarcated erythema and swelling are much better, but I am concerned now that the patient is developing a drug eruption. Will discontinue Ancef, and continue linezolid monotherapy. See below. Patient states he has a flight back to [place] on Thursday. Suspect he will be in-house until then given blood pressure issues, etc. 2. ? Drug eruption: The patient has a rash on his upper chest, neck, and the sides of his head and scalp. This is pruritic. Also of note, the patient's erythema on his right lower extremity appears different than previous, and almost looks like a superimposed drug eruption. He is starting to develop some erythematous papules on his left lower extremity as well. Have asked the nurse to discontinue all unnecessary creams, and will change to linezolid monotherapy as per the above. Obtained a CBC to look for evidence of eosinophilia, and CMP to evaluate liver function tests and creatinine in the setting of possible drug reaction. Of note, the rash does not look like intertrigo. 5 Subjective: Patient did not go home yesterday 2nd a problems with blood pressure. His blood pressure remains significantly elevated with systolic blood pressures in the 200 range. The patient is frustrated today Objective: Vital Signs Ancef 2 g IV q.8 hours day 7 Linezolid 600 mg p.o. Q.12 day 5 Afebrile Temp Pulse Resp BP Pulse Ox 36.8 C 70 20 203/108 H 90 L 10/25/17 08:00 10/25/17 08:00 10/25/17 08:00 10/25/17 10:18 10/25/17 08:00 Laboratory Results 10/23/17 04:33 10/23/17 04:33 10/24/17 10/25/17 10/26/17 05:59 05:59 05:59 Intake Total 650 1500 Output Total 3035 400 300 Balance -2385 1100 -300 - Physical Exam General Appearance: no apparent distress, obese EENT: No thrush Respiratory: lungs clear Extremities: other (Right lower extremity unwrapped: The right lower extremity itself is notable for brawny discoloration, but no beet red erythema. Swelling is much better. The patient's thigh is notable for blanching erythema with what appeared to be new erythematous macular papules that I did not appreciate 2 days ago. They are pruritic. He also has some papules developing on his left thigh.) Skin: other (Patient's skin is notable for the rash on his right thigh as outlined above, as well as a new macular papular erythematous rash beneath his neck and upper chest, and the sides of his head and scalp. No rash under his armpits or on his arms or abdomen. I am unable to roll him over to look at his back or buttock. No oral lesions.) ICD10 Worksheet Patient Problems: Problems Problem Status Onset CHF (congestive heart failure) Acute Elevated troponin Acute
[2017-10-25] MEDS: CARVEDILOL 25 MG TAB PO SCH ×2 (11:07→18:26)
--- NOTE | 2017-10-25 12:01 | ASMTCMCOM ---
CM Note CM Note Notes: CM spoke w/ Brenda Lazar regarding d/c POC. Pt is not being discharged today due to high blood pressure. The plan remains the same. Pt will d/c with oral antibiotics when medically stable and fly back to [place]. CM available for changes. Plan: Independent Date Signed: 10/25/2017 12:00 PM Electronically Signed By:CLARIBEL Lenz
[2017-10-25 14:40] LABS: PLATELET COUNT 308 10^3/uL (150-400)
[2017-10-25] MEDS ORDERED: DIPHENHYDRAMINE CREAM TP PRN (16:10)
--- NOTE | 2017-10-25 16:11 | HOSPPROG ---
Hospitalist Progress Note Assessment/Plan: #Sepsis: resolved. Due to cellulitis. Using Linezolid given weight and inability to achieve therapeutic levels on other orals. Med has been approved and ready at [facility] #Suspected drug rash: elevated eosinophils. Ancef stopped. Benadryl cream. #Hypertensive urgency: BP improved with addition of Lisinopril (was discontinued last week). Cont Minoxidil, Coreg, Lasix. Allergy to hydralazine -can dose additional Lisinopril this aram. Goal SBP 160s #NSTEMI: cards recs -ASA, statin, BB -will need high-dose technetium imaging scan outpatient #Morbid obesity #MARYANN: CPAP #PAMELA: resolved #AHRF: resolved #DVT ppx: lovenox #Disp: cont inpatient for BP control Subjective: no DÍAZ or CP. New rash over neck, upper chest, thighs Objective: Vital Signs Temp Pulse Resp BP Pulse Ox 36.8 C 70 20 169/95 H 90 L 10/25/17 08:00 10/25/17 11:07 10/25/17 08:00 10/25/17 12:20 10/25/17 08:00 Laboratory Results 10/25/17 13:30 10/25/17 13:30 10/24/17 10/25/17 10/26/17 05:59 05:59 05:59 Intake Total 650 1500 Output Total 3035 400 300 Balance -2385 1100 -300 PT 17.5 SEC (12.0-15.0) H 10/18/17 11:50 INR 1.42 (0.83-1.16) H 10/18/17 11:50 - Time Spent With Patient Time Spent with Patient: greater than 35 minutes Time Spent with Patient: Greater than 35 minutes spent on this patients care, greater than 50% of time spent counseling, educating, and coordinating care regarding the above mentioned plan. ICD10 Worksheet Patient Problems: Problems Problem Status Onset CHF (congestive heart failure) Acute Elevated troponin Acute
[2017-10-25] MEDS ORDERED: CARVEDILOL 25 MG TAB PO SCH (18:00)
[2017-10-26 07:27] VITALS: BP 177/86
[2017-10-26] MEDS ORDERED: LISINOPRIL 10 MG TAB PO SCH (08:19)
--- NOTE | 2017-10-26 08:20 | HOSPPROG ---
Hospitalist Progress Note Assessment/Plan: #Sepsis: resolved. Due to cellulitis. Using Linezolid given weight and inability to achieve therapeutic levels on other orals. -Med has been approved and ready at [facility] #Suspected drug rash: elevated eosinophils. Ancef stopped. Benadryl cream. #Hypertensive urgency: BP improved with addition of Lisinopril (was discontinued last week). Cont Minoxidil, Coreg, Lasix. Allergy to hydralazine -increase LE today #NSTEMI: cards recs -ASA, statin, BB -will need high-dose technetium imaging scan outpatient #Morbid obesity #MARYANN: CPAP #PAMELA: resolved #AHRF: resolved #DVT ppx: lovenox #Disp: cont inpatient for BP control, rash. Will DC back home to [place] Objective: Vital Signs Temp Pulse Resp BP Pulse Ox 36.7 C 69 18 177/86 H 99 10/26/17 07:25 10/26/17 07:25 10/26/17 07:25 10/26/17 07:25 10/26/17 07:25 Laboratory Results 10/25/17 13:30 10/25/17 13:30 10/25/17 10/26/17 10/27/17 05:59 05:59 05:59 Intake Total 1500 Output Total 400 1700 700 Balance 1100 -1700 -700 PT 17.5 SEC (12.0-15.0) H 10/18/17 11:50 INR 1.42 (0.83-1.16) H 10/18/17 11:50 ICD10 Worksheet Patient Problems: Problems Problem Status Onset CHF (congestive heart failure) Acute Elevated troponin Acute
[2017-10-26] MEDS: ASPIRIN EC 325 MG TAB PO SCH (08:57)
[2017-10-26] MEDS: LINEZOLID 600 MG TAB PO SCH (08:58)
[2017-10-26] MEDS: MINOXIDIL 2.5 MG TAB PO SCH (08:58)
[2017-10-26] MEDS: SIMETHICONE 80 MG TAB CHEW PO SCH (08:58)
[2017-10-26] MEDS: ATORVASTATIN CALCIUM 10 MG TAB PO SCH (08:58)
[2017-10-26] MEDS: FUROSEMIDE 40 MG TAB PO SCH (08:58)
[2017-10-26] MEDS: CARVEDILOL 25 MG TAB PO SCH (08:59)
[2017-10-26] MEDS: ENOXAPARIN 60 MG/0.6 ML SYR SC SCH (09:00)
--- NOTE | 2017-10-26 10:11 | GDS ---
[f rep st] DISCHARGE SUMMARY DISCHARGE DIAGNOSES: 1. Sepsis secondary to lower extremity cellulitis. 2. Cellulitis. 3. Ancef related drug rash. 4. Hypertensive urgency. 5. Non-ST segment myocardial infarction. 6. Morbid obesity. 7. Obstructive sleep apnea on CPAP. 8. Acute hypoxic respiratory failure. 9. Hypertension. 10. Hyperlipidemia. 11. The patient reported history of congestive heart failure. 12. Decompensated right heart failure. HPI: 47-year-old male with morbid obesity, hypertension, hyperlipidemia, self- reported heart failure, visiting from [place], presented to the ER with severe shortness of breath, fatigue, and chest pressure. He had fallen the day prior to presentation and was driving up to [place] at elevation. Upon arrival there, he developed subjective fevers, chills, and shakes. Shortness of breath became so severe that he drove down from altitude for elevation. Reported increased lower extremity edema since travel. He keeps his legs wrapped to minimize swelling. HOSPITAL COURSE BY PROBLEM: 1. Acute hypoxic respiratory failure: due to RHF. No WMA on echo, but severely reduced RV function. Resumed his home Lasix. He is compliant with CPAP. 2. Sepsis: from lower extremity cellulitis. Was treated with Ancef and Linezolid, given morbid obesity and inability to achieve therapeutic levels on other orals. Developed a drug rash over chest and legs, which is likely due to Ancef. This improved day of DC and no mucosal involvement. Linezolid was improved and is ready at [facility]. 3. Suspected drug rash: elevated eosinophils, likely due to Ancef. 4. Hypertensive urgency: Initially held his blood pressure medications with sepsis. After improvement of that he had difficult to treat blood pressures with highs in the 200s over 120s. Restarted clonidine patch and minoxidil, Coreg. Blood pressures were still uncontrolled. He reports his lisinopril was stopped last week for unknown reasons. I restarted this with improvement. Discharge him on 10 mg. He is to follow up with his [place] driver. 5. Non ST elevation myocardial infarction: Likely secondary to sepsis. Cardiology evaluated. He had no wall motion abnormalities on limited echo. He was started on aspirin, statin. Continues beta krista. Need stress test; he has one scheduled back at home. 6. Morbid obesity: Counseled on diet and exercise. 7. Obstructive sleep apnea: compliant with CPAP. 8. Acute kidney injury: This resolved. 9. Disposition: Patient is stable for discharge home. He plans to fly back to [place] tomorrow. MEDICATIONS: New medications: Lipitor, lisinopril 10 mg, linezolid, and aspirin. PHYSICAL EXAMINATION: VITAL SIGNS: Temperature 36.7, blood pressure 163/94, heart rate in the 70s, respirations 20, 90% on room air. GENERAL: Morbidly obese, lying in bed, no acute distress. HEENT: PERRLA. No oral lesions or ulcerations. CV: Regular rate and rhythm. Lungs distant, clear anteriorly. ABDOMEN: Obese, soft, nontender. MUSCULOSKELETAL: Legs are wrapped, edematous. SKIN: Macular papular rash over chest, thighs and neck. Still present, but improved, less red, not warm. NEURO: 2 through 12 intact. PSYCH : Alert and oriented x3. Time spent on discharge greater 35 minutes educating patient on medications, follow up with Cardiology and coordinating discharge. /[id number]/MODL KATE
--- NOTE | 2017-10-26 10:58 | ASMTCMCOM ---
CM Note CM Note Notes: Patient to d/c home to [place] today with oral ABX. No further needs. Date Signed: 10/26/2017 10:58 AM Electronically Signed By:Izzy Agustin LCSW
== END 2017-10-26 11:30 | disposition home or self-care (01) | DRG 871 ==
LOC: F2N 15:45 → F3E 10-19 17:43
PROVIDERS: ADMIT Hospitalist; ATTEND Internal Medicine
PROC: 02HV33Z Insertion of Infusion Device into Superior Vena Cava, Percutaneous Approach (ICD-10-PCS; principal; 2017-10-18)
DX: A41.9 Sepsis, unspecified organism (principal); L03.115 Cellulitis of right lower limb; I50.30 Unspecified diastolic (congestive) heart failure; I21.A1 Myocardial infarction type 2; J96.01 Acute respiratory failure with hypoxia; N17.9 Acute kidney failure, unspecified; Z68.44 Body mass index [BMI] 60.0-69.9, adult; I16.0 Hypertensive urgency; I50.810 Right heart failure, unspecified; I87.2 Venous insufficiency (chronic) (peripheral); I89.0 Lymphedema, not elsewhere classified; T36.95XA Adverse effect of unspecified systemic antibiotic, initial encounter; L27.0 Generalized skin eruption due to drugs and medicaments taken internally; E66.01 Morbid (severe) obesity due to excess calories; R73.03 Prediabetes; D64.9 Anemia, unspecified; G47.33 Obstructive sleep apnea (adult) (pediatric); I11.0 Hypertensive heart disease with heart failure; E78.5 Hyperlipidemia, unspecified; J45.909 Unspecified asthma, uncomplicated; Z79.82 Long term (current) use of aspirin; Z82.49 Family history of ischemic heart disease and other diseases of the circulatory system
CPT/HCPCS: 80307; C1751; C8924; G0480; J0690; J0696; J1650; J3370; J3411; Q9957